=== PATIENT | female | born 1960 | race Caucasian/White ===

== ENCOUNTER 2017-01-14 20:59 | Observation (INO) ==
--- NOTE | 2017-01-14 21:24 | Emergency Department Note ---
Disposition Clinical Impression: Chest pain, History of coronary artery disease, Obesity, History of hypertension, Smoker, History of COPD, Hypokalemia, Anemia Disposition: Admitted As Inpatient Referrals: Bakari Love DO [Primary Care Provider] - Forms: ED Satisfaction Letter General Adult HPI - General Chief complaint: ED Chest Pain Stated complaint: chest pain x 3 days Time Seen by Provider: 01/14/17 21:24 Source: patient, EMS Limitations: no limitations - History of Present Illness HPI Narrative: 56-year-old female with a history of coronary artery disease per her report states that she has been having left-sided chest pain radiating to the left arm for the last 3 days. The patient has no known history of coronary stents but states she has had 2 MIs. She also reports a history of COPD. She does not require oxygen at home. The patient has been coughing but not coughing up any blood. No leg swelling or pain or syncope. No previous history of DVT PE or cancer. The patient describes sharp left-sided chest pain. The patient has had no trauma to the chest. There is no history of localized abdominal pain no previous history of aneurysms. No diarrhea but some emesis has been reported. She is not anticoagulated. No bloody emesis. There is no history of acute back pain no trouble moving the arms or legs independently. No history of confusion neck stiffness rash or fever. No troubles walking talking hearing seeing or speaking. The pain in the chest hurts with coughing and moving. Pain Scale: 10 - Related Data Home Medications Medication Instructions Recorded Confirmed Escitalopram [Lexapro] 20 mg PO DAILY 03/21/15 01/14/17 Loratadine [Claritin] 10 mg PO DAILY 03/21/15 01/14/17 Albuterol Sulfate [Proair Hfa] 2 puff IH Q4H PRN 01/14/17 01/14/17 Aspirin Enteric Coated [Aspirin EC] 325 mg PO DAILY 01/14/17 01/14/17 Atorvastatin Calcium [Lipitor] 80 mg PO HS 01/14/17 01/14/17 Fenofibrate Nanocrystallized 160 mg PO DAILY 01/14/17 01/14/17 [Triglide] Fluticasone Propionate Nasal 50 mcg NS DAILY 01/14/17 01/14/17 [Flonase] Fluticasone/Vilanterol [Breo 1 each IH DAILY 01/14/17 01/14/17 Ellipta 100-25 Mcg INH] Gabapentin [Neurontin] 1,200 mg PO TID 01/14/17 01/14/17 Lisinopril/Hydrochlorothiazide 1 each PO BID 01/14/17 01/14/17 [Zestoretic 20-12.5 mg Tablet] Montelukast [Singulair] 10 mg PO HS 01/14/17 01/14/17 [place]-3/Dha/Epa/Fish Oil [Fish Oil 1,000 mg PO DAILY 01/14/17 01/14/17 1,000 mg Softgel] Oxycodone HCl/Acetaminophen 1 each PO TID PRN 01/14/17 01/14/17 [Percocet 5-325 mg Tablet] Simethicone [Gas-X] 80 mg PO TID 01/14/17 01/14/17 Trazodone HCl 200 mg PO HS 01/14/17 01/14/17 diazePAM [Valium] 5 mg PO TID 01/14/17 01/14/17 risperiDONE [Risperdal] 4 mg PO HS 01/14/17 01/14/17 Allergies Allergy/AdvReac Type Severity Reaction Status Date / Time No Known Allergies Allergy Verified 04/01/16 18:15 All systems ED: reviewed and negative except as stated. Past Medical History - Past Medical History Medical history: Reports: hypertension, myocardial infarction, other Psychiatric history: Reports: anxiety, depression ASSEMBLER BONDING history: Reports: no ASSEMBLER BONDING history - Social History Smoking Status: Current every day smoker Smokeless Tobacco Status: No Alcohol use: Reports: none Drug use: Reports: none Physical Exam - General Limitations: no limitations General appearance: alert, in no apparent distress - Head Head exam: atraumatic, normocephalic, normal inspection - Eye Eye exam: Present: normal appearance, PERRL, EOMI - ENT ENT exam: normal exam, normal oropharynx, mucous membranes moist, TM's normal bilaterally, normal external ear exam - Neck Neck exam: Present: normal inspection, full ROM, trachea midline. Absent: tenderness - Chest Chest inspection: Present: symmetric chest wall rise. Absent: tenderness - Respiratory Respiratory exam: Present: normal lung sounds bilaterally. Absent: respiratory distress, wheezes, stridor, accessory muscle use, prolonged expiratory phase - Cardiovascular Cardiovascular exam: Present: regular rate, normal rhythm, normal heart sounds - Abdominal Exam Abdominal exam: Present: soft, Non-Tender, normal bowel sounds. Absent: tenderness, distention, guarding, rebound, rigidity, pulsatile mass - Extremities Exam Extremities exam: Present: normal inspection, full ROM, normal capillary refill. Absent: tenderness, pedal edema, joint swelling, calf tenderness - Expanded Lower Extremity Exam Lower leg exam: Absent: Homans' sign Neurovascular/Tendon exam: Present: normal capillary refill. Absent: motor deficit, sensory deficit, tendon deficit, extremity cold to touch, pallor - Back Exam Back exam: Present: normal inspection, full ROM. Absent: tenderness, CVA tenderness (R), CVA tenderness (L), vertebral tenderness - Neurological Exam Neurological exam: Present: alert, oriented X3, CN II-XII intact. Absent: motor sensory deficit - Psychiatric Psychiatric exam: Present: normal affect, normal mood - Skin Skin exam: Present: warm, dry, intact, normal color. Absent: rash, cyanosis, diaphoresis, erythema, pallor, mottled Course Vital Signs Temperature 98.4 F 01/14/17 21:06 Pulse Rate 74 01/14/17 21:06 Respiratory Rate 20 01/14/17 21:06 Blood Pressure 114/67 01/14/17 21:06 O2 Sat by Pulse Oximetry 95 01/14/17 21:06 Temperature 98.4 F 01/14/17 21:06 Pulse Rate 72 01/14/17 22:29 Respiratory Rate 18 01/14/17 22:29 Blood Pressure 119/71 01/14/17 22:29 O2 Sat by Pulse Oximetry 95 01/14/17 22:29 Oxygen Delivery Oxygen Delivery Room Air Medical Decision Making - [facility] Narrative Medical decision making narrative: The patient has over 50, obese, has a history of hypertension, she is complaining of chest pain and dyspnea on exertion particularly, the patient has not had a stress test for many years, she states she has had an LA in the past. The patient's testing here shows no major abnormalities of an acute nature, however based on her risk factors and heart score of 5 or 6, with no recent cardiac testing, I thought it would be appropriate to admit the patient for observation. She was given aspirin in the ED as well as morphine and Zofran. I discussed the case with the hospitalist who has accepted the patient to their care. The patient is currently stable. - Lab Data Lab results reviewed: Yes I reviewed the patient's lab results. Result diagrams: 01/14/17 21:33 01/14/17 21:33 Lab Results 01/14/17 01/14/17 01/14/17 Range/Units 21:33 21:33 21:33 WBC (4.3-11.1) K/mcL RBC (3.82-4.97) M/mcL Hgb (11.5-15.4) g/dL Hct (35.3-44.9) % MCV (83.0-100.0) fL MCH (28.0-33.3) pg MCHC (31.6-35.5) g/dL RDW (11.5-14.5) % Plt Count (140-400) K/mcL MPV (9.4-12.4) fL Immature Gran % (0-4) % Seg Neutrophils % % Lymphocytes % % Monocytes % % Eosinophils % % Basophils % % Neutrophils # (1.6-8.9) K/mcL Lymphocytes # (0.6-4.6) K/mcL Monocytes # (0.0-1.3) K/mcL Eosinophils # (0.0-0.6) K/mcL Basophils # (0.0-0.2) K/mcL Immature Plt Fraction (1.1-6.1) % PT 11.6 (9.4-12.1) Seconds INR 1.1 APTT 28.3 (26.0-36.0) Seconds Sodium (136-145) mEq/L Potassium (3.5-4.5) mEq/L Chloride (98-109) mEq/L Carbon Dioxide (19-29) mEq/L BUN (7-20) mg/dL Creatinine (0.57-1.11) mg/dL Est GFR ( Amer) (> 60) Est GFR (Non-Af Amer) (> 60) BUN/Creatinine Ratio (6-26) Glucose (70-99) mg/dL Calculated Osmolality (280-300) Lactic Acid 0.8 (0.5-2.2) mmol/L Calcium (8.6-10.8) mg/dL Total Bilirubin 0.5 (0.2-1.2) mg/dL Direct Bilirubin 0.2 (0.0-0.5) mg/dL Indirect Bilirubin 0.3 (0.0-1.2) mg/dL AST 31 (5-34) Units/L ALT 15 (0-55) Units/L Alkaline Phosphatase 50 (38-126) Units/L Troponin I (0-0.03) ng/mL C-Reactive Protein 6 H (Less than 5) mg/L Serum Total Protein 7.2 (6.0-8.3) g/dL Albumin 3.5 (3.5-5.0) g/dL Globulin 3.7 H (2.4-3.5) g/dL Albumin/Globulin Ratio 0.9 L (1.1-2.2) Lipase 44 (8-78) Units/L 01/14/17 01/14/17 01/14/17 Range/Units 21:33 21:33 21:33 WBC 8.1 (4.3-11.1) K/mcL RBC 3.60 L (3.82-4.97) M/mcL Hgb 11.4 L (11.5-15.4) g/dL Hct 32.7 L (35.3-44.9) % MCV 90.8 (83.0-100.0) fL MCH 31.7 (28.0-33.3) pg MCHC 34.9 (31.6-35.5) g/dL RDW 12.6 (11.5-14.5) % Plt Count 292 (140-400) K/mcL MPV 9.1 L (9.4-12.4) fL Immature Gran % 0.5 (0-4) % Seg Neutrophils % 63.9 % Lymphocytes % 24.2 % Monocytes % 8.3 % Eosinophils % 2.6 % Basophils % 0.5 % Neutrophils # 5.2 (1.6-8.9) K/mcL Lymphocytes # 2.0 (0.6-4.6) K/mcL Monocytes # 0.7 (0.0-1.3) K/mcL Eosinophils # 0.2 (0.0-0.6) K/mcL Basophils # 0.0 (0.0-0.2) K/mcL Immature Plt Fraction 4.4 (1.1-6.1) % PT (9.4-12.1) Seconds INR APTT (26.0-36.0) Seconds Sodium 124 L (136-145) mEq/L Potassium 3.4 L (3.5-4.5) mEq/L Chloride 89 L (98-109) mEq/L Carbon Dioxide 24 (19-29) mEq/L BUN 8 (7-20) mg/dL Creatinine 0.78 (0.57-1.11) mg/dL Est GFR ( Amer) > 60 (> 60) Est GFR (Non-Af Amer) > 60 (> 60) BUN/Creatinine Ratio 10 (6-26) Glucose 91 (70-99) mg/dL Calculated Osmolality 256 L (280-300) Lactic Acid (0.5-2.2) mmol/L Calcium 9.3 (8.6-10.8) mg/dL Total Bilirubin (0.2-1.2) mg/dL Direct Bilirubin (0.0-0.5) mg/dL Indirect Bilirubin (0.0-1.2) mg/dL AST (5-34) Units/L ALT (0-55) Units/L Alkaline Phosphatase (38-126) Units/L Troponin I 0.01 (0-0.03) ng/mL C-Reactive Protein (Less than 5) mg/L Serum Total Protein (6.0-8.3) g/dL Albumin (3.5-5.0) g/dL Globulin (2.4-3.5) g/dL Albumin/Globulin Ratio (1.1-2.2) Lipase (8-78) Units/L - Radiology Data Radiology results reviewed: Yes I reviewed the patient's radiology results.
[2017-01-14 21:40] LABS: Basophils % 0.5 %; Eosinophils # 0.2 K/mcL (0.0-0.6); Eosinophils % 2.6 %; Hematocrit 32.7 % (35.3-44.9); Hemoglobin 11.4 g/dL (11.5-15.4); Immature Granulocytes % 0.5 % (0-4); Immature Platelets 4.4 % (1.1-6.1); Lymphocytes % 24.2 %; Mean Corpuscular HGB Conc 34.9 g/dL (31.6-35.5); Mean Corpuscular Hemoglobin 31.7 pg (28.0-33.3); Mean Corpuscular Volume 90.8 fL (83.0-100.0); Mean Platelet Volume 9.1 fL (9.4-12.4); Monocytes # 0.7 K/mcL (0.0-1.3); Monocytes % 8.3 %; Neutrophils # 5.2 K/mcL (1.6-8.9); Platelet Count 292 K/mcL (140-400); Red Cell Distribution Width 12.6 % (11.5-14.5); Segmented Neutrophils % 63.9 %
[2017-01-14 21:44] LABS: INR 1.1; Prothrombin Time 11.6 Seconds (9.4-12.1)
[2017-01-14 21:47] LABS: Activated Partial Thrombo Time 28.3 Seconds (26.0-36.0)
[2017-01-14 21:56] LABS: BUN/Creatinine Ratio 10 (6-26); Blood Urea Nitrogen 8 mg/dL (7-20); Calcium 9.3 mg/dL (8.6-10.8); Carbon Dioxide 24 mEq/L (19-29); Chloride 89 mEq/L (98-109); Glucose 91 mg/dL (70-99); Osmolality,Calculated 256 (280-300); Potassium 3.4 mEq/L (3.5-4.5); Sodium 124 mEq/L (136-145); eGFR For African Americans > 60 (> 60); eGFR For Non-African Americans > 60 (> 60)
[2017-01-14 21:57] LABS: Albumin 3.5 g/dL (3.5-5.0); Albumin/Globulin Ratio 0.9 (1.1-2.2); Bilirubin,Direct 0.2 mg/dL (0.0-0.5); Bilirubin,Indirect 0.3 mg/dL (0.0-1.2); Bilirubin,Total 0.5 mg/dL (0.2-1.2); Globulin 3.7 g/dL (2.4-3.5); Total Protein 7.2 g/dL (6.0-8.3)
[2017-01-14] MEDS ORDERED: *HR* Morphine 2 MG/ML SYRINGE IVP ONE (22:01)
[2017-01-14] MEDS ORDERED: Ondansetron 4 MG/2 ML VIAL IVP ONE (22:01)
[2017-01-14] MEDS ORDERED: Aspirin 325 MG TABLET PO ONE (22:01)
[2017-01-15] MEDS ORDERED: Acetaminophen 325 MG TABLET PO PRN (01:51)
[2017-01-15] MEDS ORDERED: Naloxone 0.4 MG/ML INJ IVP PRN (01:51)
[2017-01-15] MEDS ORDERED: Nitroglycerin 0.4 MG TAB.SUBL SL PRN (01:51)
[2017-01-15] MEDS ORDERED: *HR* OxyCODONE Immed Rel 5 MG TABLET PO PRN (01:51)
[2017-01-15] MEDS ORDERED: *HR* Morphine 2 MG/ML SYRINGE IVP PRN (01:51)
[2017-01-15] MEDS ORDERED: Ipratropium/Albuterol Neb 3 ML IH PRN (01:51)
[2017-01-15] MEDS ORDERED: Ondansetron 4 MG/2 ML VIAL IVP PRN (01:51)
--- NOTE | 2017-01-15 01:58 | Internal Med History&Physical ---
Date of Encounter: 01/15/17 Time of Encounter: 01:56 Assessment and Plan (1) Chest pain Current visit: Yes Status: Acute With history of CAD Continue aspirin, statin Telemetry, troponins, echocardiogram, stress test in the morning Check lipid panel Omeprazole for GI prophylaxis and Lovenox for DVT prophylaxis he will be admitted for observation. Full code. Time spent on this admission 40 minutes. Qualifiers: Chest pain type: precordial pain Qualified Code(s): R07.2 - Precordial pain (2) Hyponatremia Current visit: Yes Status: Acute Possibly secondary to chronic alcoholism/hypovolemic and the use of hydrochlorothiazide Hold hydrochlorothiazide Send urine sodium and urine osmolality, monitor sodium, will maintain hydration for now as the patient appears dehydrated Order TSH (3) Alcohol abuse Current visit: Yes Status: Acute Continue diazepam (4) History of COPD Current visit: Yes Status: Acute (5) History of coronary artery disease Current visit: Yes Status: Acute (6) History of hypertension Current visit: Yes Status: Acute (7) Hypokalemia Current visit: Yes Status: Acute Replete as needed (8) Obesity Current visit: Yes Status: Acute Qualifiers: Obesity type: due to excess calories Obesity severity: morbid Qualified Code(s): E66.01 - Morbid (severe) obesity due to excess calories (9) Smoker Current visit: Yes Status: Acute Smoking cessation counseling given for 5 minutes. Nicotine patch Internal Medicine - H&P: HPI Chief complaint: Chest pain Admitted From: Emergency Dept History of present illness: Ms. Blanc is a 56 year old female with a past medical history of CAD with 2 MIs in the past, COPD not oxygen dependent, hypertension, tobacco use, hyperlipidemia, history of alcohol and polysubstance abuse, came to the emergency room complaining of 3 days of chest pain, with a dry cough, feels short of breath and has been complaining of difficulty breathing when the chest pressure occurs. Midsternal, pressure-like with no radiation. Today her troponin x-ray and EKG were unremarkable. Sodium is 124 potassium 3.4 and chloride 89. The patient says that she does not eat much drinks lots of water and drinks beer every day. Also she is on hydrochlorothiazide. Appears slightly dehydrated and complains of headaches Past Med Surg Social Fam HX - Past Medical History Medical history: COPD (Not oxygen dependent), coronary artery disease, GERD, hypertension, myocardial infarction, other (Tobacco use, polysubstance abuse, seizure in 1997, hyperlipidemia, alcohol abuse, cervical radiculopathy, neuropathy, hypokalemia) Psychiatric history: anxiety, depression - Past Surgical History Surgical History: other (Cardiac catheterization, I and D, left arm surgery, carpal tunnel surgery, right knee arthroscopy, meniscectomy) - Social History Smoking Status: Current every day smoker Packs per day: Hospital pack a day Smokeless Tobacco Status: No Alcohol use: recent (Says she drinks 1 beer daily) Drug use: other (Used to abuse speed) - Family History Mother Hx Family Cardiac Disorders: Yes (ME) Hx Family Cancer: Yes (UTERINE) - Additional Family History Additional family history: Father and mother with CVA and diabetes Internal Medicine - H&P: Meds Escitalopram [Lexapro] 20 mg PO DAILY 03/21/15 [History] Loratadine [Claritin] 10 mg PO DAILY 03/21/15 [History] Albuterol Sulfate [Proair Hfa] 2 puff IH Q4H PRN 01/14/17 [History] Aspirin Enteric Coated [Aspirin EC] 325 mg PO DAILY 01/14/17 [History] Atorvastatin Calcium [Lipitor] 80 mg PO HS 01/14/17 [History] Fenofibrate Nanocrystallized [Triglide] 160 mg PO DAILY 01/14/17 [History] Fluticasone Propionate Nasal [Flonase] 50 mcg NS DAILY 01/14/17 [History] Fluticasone/Vilanterol [Breo Ellipta 100-25 Mcg INH] 1 each IH DAILY 01/14/17 [ History] Gabapentin [Neurontin] 1,200 mg PO TID 01/14/17 [History] Lisinopril/Hydrochlorothiazide [Zestoretic 20-12.5 mg Tablet] 1 each PO BID 04/24 [History] Montelukast [Singulair] 10 mg PO HS 01/14/17 [History] [place]-3/Dha/Epa/Fish Oil [Fish Oil 1,000 mg Softgel] 1,000 mg PO DAILY 01/14/17 [History] Oxycodone HCl/Acetaminophen [Percocet 5-325 mg Tablet] 1 each PO TID PRN [History] Simethicone [Gas-X] 80 mg PO TID 01/14/17 [History] Trazodone HCl 200 mg PO HS 01/14/17 [History] diazePAM [Valium] 5 mg PO TID 01/14/17 [History] risperiDONE [Risperdal] 4 mg PO HS 01/14/17 [History] Allergies No Known Allergies Allergy (Verified 04/01/16 18:15) All Systems PM: A 10-system review of systems was performed and is negative for pertinent findings except as documented above in the HPI. Review of systems: Complains of chest pressure mild, shortness of breath, other systems out of the 10 reviewed were negative - Constitutional Vitals: Temp Pulse Resp BP Pulse Ox 98.1 F 72 16 116/66 94 01/15/17 00:13 01/15/17 00:13 01/15/17 00:13 01/15/17 00:13 01/15/17 00:13 General appearance: Present: A&O X 3 - Head Head exam: Present: atraumatic, normocephalic - Eye Eye exam: Present: PERRL, conjuntiva pink, sclera anicteric Pupils: Present: PERRL - Neck Neck exam general surgery: Present: supple, trachea midline. Absent: lymphadenopathy - Respiratory Respiratory exam: Present: decreased breath sounds, CTAB. Absent: accessory muscle use, rales, rhonchi, wheezes - Cardiovascular Cardiovascular exam: Present: RRR, +S1, +S2. Absent: diastolic murmur, gallop, rubs, systolic murmur - GI/Abdominal GI/Abdominal exam: Present: normal bowel sounds, soft, no peritoneal signs. Absent: distended, tenderness - Extremities Exam Extremities exam: Present: warm, radial pulses palpable and symetrical. Absent : calf tenderness, cyanotic, pedal edema - Neurological Exam Neurological exam: Present: CN II-XII intact, oriented X3, no focal deficits. Absent: pronater drift, facial droop, speech deficit - Skin Skin exam: Present: dry, intact Internal Med - H&P Results - Labs CBC & Chem 7: 01/14/17 21:33 01/14/17 21:33
[2017-01-15] MEDS ORDERED: 0.9 % Sodium Chloride 1,000 ML IVC SCH (02:00)
[2017-01-15 03:25] LABS: Chol/HDL Ratio 5.4 (0-4.9)
[2017-01-15 04:31] LABS: Sodium, Urine < 20.0 mEq/L
[2017-01-15 04:34] LABS: Osmolality,Urine 162 mOsm/kg (300-1090)
[2017-01-15] MEDS ORDERED: *HR* Enoxaparin 40 MG/0.4 ML SYRINGE SQ SCH (06:00)
[2017-01-15] MEDS ORDERED: Regadenoson 0.4 MG/5 ML SYRINGE IVP ONE (08:26)
[2017-01-15] MEDS ORDERED: Fenofibrate 54 MG TABLET PO SCH (09:00)
[2017-01-15] MEDS ORDERED: Lisinopril 20 MG TABLET PO SCH (09:00)
[2017-01-15] MEDS ORDERED: Nicotine 21 MG PATCH.TD24 TD SCH (09:00)
[2017-01-15] MEDS ORDERED: Thiamine (B-1) 100 MG TABLET PO SCH (09:00)
[2017-01-15] MEDS ORDERED: Aspirin Enteric Coated 325 MG Tablet PO SCH (09:00)
[2017-01-15] MEDS ORDERED: Vitamin B Complex/Vit C/Vit E 1 EACH TABLET PO SCH (09:00)
[2017-01-15] MEDS ORDERED: Folic Acid 1 MG TABLET PO SCH (09:00)
[2017-01-15] MEDS: diazePAM 5 MG TABLET PO SCH ×2 (12:56→15:22)
[2017-01-15] MEDS: Gabapentin 400 MG CAPSULE PO SCH ×2 (12:56→15:22)
--- NOTE | 2017-01-15 13:35 | Nuclear Medicine Stress Report ---
Regadenoson Nuclear Stress Name: Kaylynn Blanc Date of Study: 01/15/2017 Date: 1960 Ht: 68.0 in Medical Record#: [id number] Age: 56 Wt: 248.0 lb Gender: Female Order #: [id number] Location: [facility] Room: [facility] Supervising Provider: Alice Hart CNP Reading Physician: Ar Elkins MD, [facility] Ordering Physician: Calli Arauz CNP Primary Care Physician: Bakari Love DO Stress Technologist: Verena Colmenares, [employer], CCT, CPFT Manager Industrial: Carlos Martinez Indications: Chest Pain Impression: No significant ECG changes with regadenoson. The left ventricle is mildly dilated. Gated LVEF = 59%. Perfusion imaging was negative for ischemia or infarct. History: Hypertension Diabetes Hypercholesteremia History of Smoking Stress Test Summary: Stress Test Type: Pharmacologic Regadenoson 0.4mg/5ml given IV Baseline Information: Initial Heart Rate: 65 Blood Pressure: 122/60 Stress Information: Test Terminated Due to (primary): As per protocol Maximum Blood Pressure: 124/64 Maximum Heart Rate: 74 Percent Maximum Heart Rate Achieved: 45 Double Product: 9176 Symptoms: Shortness of breath Nuclear Summary: SPECT myocardial perfusion imaging using Tc99m Sestamibi given intravenously was performed at rest and following cardiac stress testing. The resting images were obtained following initial dose of 11.7 mCi. Following stress an additional dose of 35.3 mCi was given at peak exercise or 30 seconds post regadenoson infusion. Findings: Stress Note * Resting ECG demonstrated normal sinus rhythm. * No baseline arrhythmias were noted. * Patient had no chest pain during stress. * No arrhythmias were noted during stress. * No significant ECG changes with regadenoson. Hemodynamic responses * Normal hemodynamic responses to pharmacologic stress. Study Quality * Study quality is average. Gated EF % * Gated LVEF = 59%. Left Ventricle * The left ventricle is mildly dilated. * Normal Segmental Perfusion in rest. * Normal segmental perfusion in stress. TID * No evidence of transient ischemic dilatation. Updated by Ar Elkins MD, [facility] on 01/15/2017 1:28:43 PM electronically signed on 01/15/2017 1:29:03 PM with status of Final
[2017-01-15 15:31] VITALS: BP 118/64
--- NOTE | 2017-01-15 16:28 | Discharge Summary ---
Date of Encounter: 01/15/17 Time of Encounter: 13:30 - Discharge Diagnosis (1) Chest pain Priority: Primary Status: Acute Comments: Patient reports left upper chest pain for 3 days then increase with cough. She said there is no radiation and no shortness of breath. She does report vomiting at one point. The pain is reproducible with palpation to left upper chest. Patient denies chest pain currently while seated. Troponins were negative 3. Echocardiogram shows normal systolic function with an LVEF of 60%, mild diastolic dysfunction, normal RV size and function. Trileaflet aortic valve with moderately sclerotic aortic valve leaflets. Mild to moderate aortic regurgitation, moderately thickened calcified mitral valve leaflets, mild mitral regurgitation, and borderline mild pulmonary hypertension. Stress test shows left ventricle is mildly dilated. Gated LVEF 59%. Perfusion imaging negative for ischemia or infarct. She had no ECG changes or chest pain during the stress test. Patient is pain-free. Qualifiers: Chest pain type: chest pain on breathing Qualified Code(s): R07.1 - Chest pain on breathing (2) Obesity Priority: Secondary Status: Chronic Comments: Chronic. Lifestyle changes. Qualifiers: Obesity type: due to excess calories Obesity severity: morbid Qualified Code(s): E66.01 - Morbid (severe) obesity due to excess calories (3) History of hypertension Priority: Secondary Status: Chronic Comments: Pressure has been well controlled today in inpatient setting. Continue home medications. (4) Smoker Priority: Secondary Status: Chronic Comments: Patient is not interested in smoking cessation at this time. She says she smokes approximately one half pack per day. (5) History of COPD Priority: Secondary Status: Chronic Comments: No acute exacerbation. This, too, is well controlled. Her lungs are clear and diminished. No wheezing, rhonchi, Rales. Continue home medications. Patient is not interested in smoking cessation. (6) Hyponatremia Priority: Secondary Status: Acute Comments: Patient arrives with hyponatremia, sodium was 124. It is 132 now. I will encourage patient to increase her sodium intake mildly over the next few days to increase her sodium. (7) Alcohol abuse Priority: Secondary Status: Chronic Comments: Patient states that she drinks 6 beers daily. She is not interested in any information on alcohol rehabilitation. - Discharge Medications Prescriptions: Folic Acid 1 mg PO DAILY #30 tablet Thiamine (B-1) [Vitamin B-1] 100 mg PO DAILY #30 tablet Home Medications: Escitalopram [Lexapro] 20 mg PO DAILY 03/21/15 [History] Loratadine [Claritin] 10 mg PO DAILY 03/21/15 [History] Albuterol Sulfate [Proair Hfa] 2 puff IH Q4H PRN 01/14/17 [History] Aspirin Enteric Coated [Aspirin EC] 325 mg PO DAILY 01/14/17 [History] Atorvastatin Calcium [Lipitor] 80 mg PO HS 01/14/17 [History] Fenofibrate Nanocrystallized [Triglide] 160 mg PO DAILY 01/14/17 [History] Fluticasone Propionate Nasal [Flonase] 50 mcg NS DAILY 01/14/17 [History] Fluticasone/Vilanterol [Breo Ellipta 100-25 Mcg INH] 1 each IH DAILY 01/14/17 [ History] Gabapentin [Neurontin] 1,200 mg PO TID 01/14/17 [History] Lisinopril/Hydrochlorothiazide [Zestoretic 20-12.5 mg Tablet] 1 each PO BID 04/24 [History] Montelukast [Singulair] 10 mg PO HS 01/14/17 [History] [place]-3/Dha/Epa/Fish Oil [Fish Oil 1,000 mg Softgel] 1,000 mg PO DAILY 01/14/17 [History] Oxycodone HCl/Acetaminophen [Percocet 5-325 mg Tablet] 1 each PO TID PRN [History] Simethicone [Gas-X] 80 mg PO TID 01/14/17 [History] Trazodone HCl 200 mg PO HS 01/14/17 [History] diazePAM [Valium] 5 mg PO TID 01/14/17 [History] risperiDONE [Risperdal] 4 mg PO HS 01/14/17 [History] Folic Acid 1 mg PO DAILY #30 tablet 01/15/17 [Rx] Thiamine (B-1) [Vitamin B-1] 100 mg PO DAILY #30 tablet 01/15/17 [Rx] Allergies/Adverse Reactions: Allergies No Known Allergies Allergy (Verified 04/01/16 18:15) Procedures/tests Complete & Pending: Procedures Performed prior 72 hours Category Date Time Status NM aleyda perf SPECT multi [NM] Routine Exams 01/15/17 02:04 Taken EV echocardiogram Routine Y 01/15/17 01:55 Completed SP pharm nuclear stress Routine Y 01/15/17 02:04 Completed Date of admission: 01/14/17 23:38 Primary care physician: Naseem Gonzalez Discharging clinician: Calli Arauz Anticipated date of discharge: 01/15/17 - Patient Status Disposition: Home, Self-Care Condition: Good Functional capacity at discharge: independent ambulation Overall status at discharge: patient is back to baseline - Discharge Instructions Follow Up With: Bakari Love, [Primary Care Provider] - Additional Instructions: Resume home medications. Ad folate and B1 to your daily medications. Return to the emergency department as needed for any other problems or concerns. Please follow-up with your primary care provider for hospital follow-up. - Diet and Activity Activity: increase activity as tolerated Diet: low fat, low cholesterol, low salt diet Hospital course: Ms. Blanc is a 56 year old female - Time Spent with Patient Total time spent providing and/or coordinating discharge services: - Constitutional Vitals: Temp Pulse Resp BP Pulse Ox 98.1 F 69 20 118/64 94 01/15/17 15:30 01/15/17 15:30 01/15/17 15:30 01/15/17 15:30 01/15/17 15:30 General appearance: Present: A&O X 3, pleasant, no acute distress, answers questions appropriately - Head Head exam: Present: normal inspection - Eye Eye exam: Present: normal appearance, conjuntiva pink - ENT ENT exam: Present: mucous membranes moist, normal exam, normal external ear exam - Neck Neck exam general surgery: Present: normal inspection. Absent: lymphadenopathy , tenderness - Respiratory Respiratory exam: Present: CTAB. Absent: rales, respiratory distress, rhonchi, wheezes - Cardiovascular Cardiovascular exam: Present: RRR, +S1, +S2. Absent: clicks, diastolic murmur, gallop, systolic murmur - GI/Abdominal GI/Abdominal exam: Present: normal bowel sounds, soft. Absent: hepatomegaly, splenomegaly, tenderness - Extremities Exam Extremities exam: Present: normal capillary refill, pedal edema, warm, radial pulses palpable and symetrical. Absent: tenderness - Neurological Exam Neurological exam: Present: alert, oriented X3, no focal deficits. Absent: facial droop, speech deficit
[2017-01-15] MEDS ORDERED: risperiDONE 1 MG TABLET PO SCH (21:00)
[2017-01-15] MEDS ORDERED: traZODone 50 MG TABLET PO SCH (21:00)
--- NOTE | 2017-01-17 08:05 | Electrocardiograph Report ---
[place] [id number] Test Date: 2017-01-14 Pat Name: Kaylynn Blanc Department: 104 Room: 3B49 Gender: F Manager Managed Care: TIFFANIE : 1960 Requested By: Dion Gallego Order Number: [id number] Reading MD: George Palomo MD Measurements Intervals [place] Rate: 76 P: 59 NV: 219 QRS: 24 QRSD: 114 T: 48 QT: 389 QTc: 420 Interpretive Statements SINUS RHYTHM WITH FIRST DEGREE AV BLOCK Electronically Signed On 01-17-2017 8:04:00 EDT by George Palomo MD
== END 2017-01-15 17:20 | disposition home or self-care (01) ==
LOC: EMEROO 20:59 → 3BNU 20:59
PROVIDERS: ADMIT Registered Nurse; ATTEND Registered Nurse

== ENCOUNTER 2018-06-12 16:26 | Inpatient (IN) ==
--- NOTE | 2018-06-12 16:54 | Emergency Department Note ---
Disposition Clinical Impression: Chest pain, Neck pain on left side, Encounter for post surgical wound check, Neck swelling Disposition: Admitted As Inpatient Condition: Good Chest Pain HPI - General Chief Complaint: ED Chest Pain Stated Complaint: cp Time Seen by Provider: 06/12/18 16:42 Source: patient, EMS Mode of arrival: EMS Limitations: no limitations, altered mental status Vital Signs Reviewed: Yes Nursing Notes Reviewed: Yes - History of Present Illness HPI Narrative: Patient is a 57-year-old female presenting to the ED for a 3 day history of chest and neck pain. Patient states that she is postop day 5 for an anterior cervical fusion performed by Dr. Youssef. Patient states that 3 days ago she began having chest pain and pain in the left side of her neck which is associated with swelling and erythema of the anterior throat. Patient also admits difficulty breathing and dysphagia. Patient states that her chest pain is "the worst pain of my life" 10 out of 10 on the pain scale and tight and stabbing in nature. Onset (ago): day(s) Duration: constant Pain Location: left chest Severity: severe Severity scale (1-10): 10 Quality: tightness, sharp Pain Radiation: neck Improves with: nothing Worsens with: nothing Context: history of DVT/PE Treatments prior to arrival chest pain: aspirin - Related Data Home Medications Medication Instructions Recorded Confirmed RX: Albuterol Sulfate [Proair Hfa] 2 puff IH Q4H PRN 01/14/17 01/14/17 RX: Atorvastatin Calcium [Lipitor] 80 mg PO DAILY 01/14/17 06/07/18 RX: Fenofibrate Nanocrystallized 160 mg PO DAILY 01/14/17 06/07/18 [Triglide] RX: Fluticasone/Vilanterol [Breo 1 each IH DAILY 01/14/17 06/07/18 Ellipta 100-25 Mcg INH] RX: [place]-3/Dha/Epa/Fish Oil [Fish 1,000 mg PO DAILY 01/14/17 06/07/18 Oil 1,000 mg Softgel] RX: Simethicone [Gas-X] 80 mg PO BID 01/14/17 06/07/18 RX: Lisinopril [Zestril] 40 mg PO DAILY 06/07/18 06/07/18 RX: diazePAM [Valium] 5 mg PO TID PRN 06/08/18 06/08/18 Previous Rx's Medication Instructions Recorded RX: Albuterol Sulfate [Albuterol 2 puff IH QID #1 inhaler 05/21/17 Inhaler] RX: OxyCODONE Immed Rel 5 mg PO Q6HR PRN 7 Days #30 tablet 06/08/18 [Roxicodone 5 MG] Allergies Allergy/AdvReac Type Severity Reaction Status Date / Time acetaminophen AdvReac Headache Verified 06/07/18 09:08 [From Darvocet-N] celecoxib [From Celebrex] AdvReac Depression Verified 06/08/18 06:28 hydrocodone [From Vicodin] AdvReac Diarrhea Verified 06/08/18 06:28 ibuprofen AdvReac Gastrointestinal Verified 06/08/18 06:28 Upset naproxen [From Naprosyn] AdvReac Headache Verified 06/06/18 10:26 propoxyphene AdvReac Headache Verified 06/07/18 09:08 [From Darvocet-N] tramadol AdvReac Hives Verified 06/08/18 10:10 All systems ED: reviewed and negative except as stated. 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 There is swelling and erythema with noted pearly drainage. Patient states odynophagia/dysphasia as well as difficulty breathing. There is tenderness to palpation but no bruit noted.) - Chest Chest inspection: Present: normal inspection, symmetric chest wall rise - Respiratory Respiratory exam: Present: wheezes. Absent: respiratory distress, accessory muscle use, prolonged expiratory phase - Cardiovascular Cardiovascular exam: Present: regular rate, normal rhythm, normal heart sounds, +S1, +S2. Absent: JVD, +S3, +S4 Course Course Narrative: Patient history, review systems, and physical exam is concerning for cardiovascular pathology, as well as infectious etiology. CBC, BMP, LFT, chest x-ray, EKG, old EKG, troponin, BNP, lipase, PT/INR, PTT, CT scan of the head and neck with contrast to be performed to assess for cardiovascular, pulmonary and infectious pathology. DuoNeb nebs for relief of patient's symptoms. Vital Signs Temperature 98.0 F 06/12/18 16:31 Pulse Rate 76 06/12/18 16:31 Respiratory Rate 18 06/12/18 16:31 Blood Pressure 105/66 06/12/18 16:31 O2 Sat by Pulse Oximetry 93 06/12/18 16:31 Temperature 98.0 F 06/12/18 16:31 Pulse Rate 80 06/12/18 20:08 Respiratory Rate 18 06/12/18 20:08 Blood Pressure 124/69 06/12/18 20:08 O2 Sat by Pulse Oximetry 94 06/12/18 20:08 Oxygen Delivery Oxygen Delivery Room Air Chest Pain - MDM Narrative Medical decision making narrative: CT scan of the neck showed narrowing of the laryngeal airway. Patient also states continuing pain in her neck and chest. Patient will be admitted to the hospital for pain management as well as airway monitoring. Discussed plan for admission with patient and patient is in agreement with this plan. Hospitalist accepts admission. - Lab Data Lab results reviewed: Yes I reviewed the patient's lab results. Result diagrams: 06/12/18 16:45 06/12/18 16:45 Lab Results 06/12/18 06/12/18 06/12/18 Range/Units 16:45 16:45 16:45 WBC (4.3-11.1) K/mcL RBC (3.82-4.97) M/mcL Hgb (11.5-15.4) g/dL Hct (35.3-44.9) % MCV (83.0-100.0) fL MCH (28.0-33.3) pg MCHC (31.6-35.5) g/dL RDW (11.5-14.5) % Plt Count (140-400) K/mcL MPV (9.4-12.4) fL Immature Gran % (0-4) % Seg Neutrophils % % Lymphocytes % % Monocytes % % Eosinophils % % Basophils % % Neutrophils # (1.6-8.9) K/mcL Lymphocytes # (0.6-4.6) K/mcL Monocytes # (0.0-1.3) K/mcL Eosinophils # (0.0-0.6) K/mcL Basophils # (0.0-0.2) K/mcL PT 11.6 (9.4-12.1) Seconds INR 1.0 APTT 29.5 (26.0-36.0) Seconds D-Dimer 1015 H (0-500) ng/mLFEU Sodium (136-145) mEq/L Potassium (3.5-5.1) mEq/L Chloride (98-107) mEq/L Carbon Dioxide (23-29) mEq/L BUN (6-20) mg/dL Creatinine (0.60-1.20) mg/dL Est GFR ( Amer) (> 60) Est GFR (Non-Af Amer) (> 60) BUN/Creatinine Ratio (6-26) Glucose (70-105) mg/dL Calculated Osmolality (280-300) Calcium (8.6-10.3) mg/dL Total Bilirubin 0.3 (0.3-1.0) mg/dL Direct Bilirubin 0.0 (0.0-0.2) mg/dL Indirect Bilirubin 0.3 (0.0-1.2) mg/dL AST 14 (13-39) Units/L ALT 7 (7-52) Units/L Alkaline Phosphatase 32 L (34-104) Units/L Troponin I (< 0.04) ng/mL B-Natriuretic Peptide 25 (Less than 100) pg/mL Serum Total Protein 6.9 (6.4-8.9) g/dL Albumin 3.7 (3.5-5.7) g/dL Globulin 3.2 (2.4-3.5) g/dL Albumin/Globulin Ratio 1.2 (1.1-2.2) Lipase 7 L (11-82) Units/L 06/12/18 06/12/18 Range/Units 16:45 16:45 WBC 10.9 (4.3-11.1) K/mcL RBC 3.71 L (3.82-4.97) M/mcL Hgb 11.7 D (11.5-15.4) g/dL Hct 35.4 (35.3-44.9) % MCV 95.4 (83.0-100.0) fL MCH 31.5 (28.0-33.3) pg MCHC 33.1 (31.6-35.5) g/dL RDW 13.6 (11.5-14.5) % Plt Count 327 (140-400) K/mcL MPV 10.5 (9.4-12.4) fL Immature Gran % 1.1 (0-4) % Seg Neutrophils % 66.7 % Lymphocytes % 20.3 % Monocytes % 8.5 % Eosinophils % 2.9 % Basophils % 0.5 % Neutrophils # 7.3 (1.6-8.9) K/mcL Lymphocytes # 2.2 (0.6-4.6) K/mcL Monocytes # 0.9 (0.0-1.3) K/mcL Eosinophils # 0.3 (0.0-0.6) K/mcL Basophils # 0.1 (0.0-0.2) K/mcL PT (9.4-12.1) Seconds INR APTT (26.0-36.0) Seconds D-Dimer (0-500) ng/mLFEU Sodium 129 L (136-145) mEq/L Potassium 3.8 (3.5-5.1) mEq/L Chloride 96 L (98-107) mEq/L Carbon Dioxide 25 (23-29) mEq/L BUN 8 (6-20) mg/dL Creatinine 0.59 L (0.60-1.20) mg/dL Est GFR ( Amer) > 60 (> 60) Est GFR (Non-Af Amer) > 60 (> 60) BUN/Creatinine Ratio 14 (6-26) Glucose 98 (70-105) mg/dL Calculated Osmolality 266 L (280-300) Calcium 9.9 (8.6-10.3) mg/dL Total Bilirubin (0.3-1.0) mg/dL Direct Bilirubin (0.0-0.2) mg/dL Indirect Bilirubin (0.0-1.2) mg/dL AST (13-39) Units/L ALT (7-52) Units/L Alkaline Phosphatase (34-104) Units/L Troponin I < 0.03 (< 0.04) ng/mL B-Natriuretic Peptide (Less than 100) pg/mL Serum Total Protein (6.4-8.9) g/dL Albumin (3.5-5.7) g/dL Globulin (2.4-3.5) g/dL Albumin/Globulin Ratio (1.1-2.2) Lipase (11-82) Units/L - Radiology Data Radiology results reviewed: Yes I reviewed the patient's radiology results. Chest X-Ray 06/12/18 16:46 IMPRESSION: No acute cardiopulmonary disease. D/ / Taran Talbert MD / Taran Talbert MD Interpreting Provider: Taran Talbert MD Chest CTA 06/12/18 16:55 IMPRESSION: 1. No evidence of pulmonary embolic disease. 2. No acute pulmonary findings. 3. Ectasia of the ascending aorta at 4.0 cm maximally. Atherosclerotic calcification in the aorta and coronary circulation. Reflux opacification of the IVC and hepatic veins suggesting elevated right heart pressures. D/ / 06/12/2018 18:44:31 Taran Talbert MD / shai Interpreting Provider: Taran Talbert MD Neck CTA 06/12/18 17:05 IMPRESSION: Status post recent anterior cervical fusion with placement of the intervertebral disc spacer. Evaluation of the structure immediately adjacent to the surgical hardware appears limited due to streak artifact. Nonspecific sclerosis involving the C4 and C5 vertebral body. Unorganized fluid collection within the left anterolateral aspect of the neck, with a few foci of gas. Inflammation and edema is seen to extend into the left oropharynx, left hypopharynx, and left larynx. There is slight rightward deviation of the aerodigestive tract. Small amount of retropharyngeal edema and fluid. While these findings could be postsurgical given recent history of surgery, superimposed infection is not excluded by this examination. Mild narrowing of the laryngeal airway as a result of this process. Clinical correlation is recommended. Approximately 70% stenosis involving the proximal left internal carotid artery, just distal to the left carotid bifurcation. Evaluation of subtle intimal injury is limited due to poor opacification and pre-existing atherosclerotic disease. No evidence of pseudoaneurysm, or active arterial extravasation. Right vertebral artery is not well seen. There is intermittent opacification. This may represent atherosclerotic disease involving the congenitally small right vertebral artery. This is not further evaluated. No evidence of high-grade stenosis or focal occlusion involving the left vertebral artery. The right carotid artery appears unremarkable. The intracranial internal carotid arteries are not well evaluated due to extensive vessel wall calcium. RECOMMENDATIONS: Recommend short interval follow-up examination to document resolution of above described findings. D/ / 06/12/2018 18:58:48 Valente Bravo MD / Elizabeth Rocha Interpreting Provider: Valente Bravo MD - EKG Data EKG attestation: Yes I reviewed and interpreted this EKG. EKG results narrative: Patient EKG shows a sinus rhythm with a normal rate and access. Heart rate is 70 bpm, [place] interval is 176 ms, QRS duration of 104 ms, QT/QTc interval of 389/444 ms. There are no significant ST elevations or depressions, pathologic Q waves, abnormal T-wave inversions, or any other signs of acute ischemic change. At this time there is no prior EKG available for comparison.
[2018-06-12] MEDS ORDERED: Isovue-370 500 ML INFUS..BTL IV ONE (16:55)
[2018-06-12] MEDS ORDERED: Ipratropium/Albuterol Neb 3 ML IH ONE (17:05)
[2018-06-12 17:07] LABS: Basophils # 0.1 K/mcL (0.0-0.2); Basophils % 0.5 %; Eosinophils # 0.3 K/mcL (0.0-0.6); Eosinophils % 2.9 %; Hematocrit 35.4 % (35.3-44.9); Immature Granulocytes % 1.1 % (0-4); Lymphocytes # 2.2 K/mcL (0.6-4.6); Lymphocytes % 20.3 %; Mean Corpuscular HGB Conc 33.1 g/dL (31.6-35.5); Mean Corpuscular Hemoglobin 31.5 pg (28.0-33.3); Mean Corpuscular Volume 95.4 fL (83.0-100.0); Mean Platelet Volume 10.5 fL (9.4-12.4); Monocytes # 0.9 K/mcL (0.0-1.3); Monocytes % 8.5 %; Neutrophils # 7.3 K/mcL (1.6-8.9); Platelet Count 327 K/mcL (140-400); Red Blood Count 3.71 M/mcL (3.82-4.97); Red Cell Distribution Width 13.6 % (11.5-14.5); Segmented Neutrophils % 66.7 %
[2018-06-12 17:08] LABS: Hemoglobin 11.7 g/dL (11.5-15.4)
--- NOTE | 2018-06-12 17:15 | Emergency Department Note ---
Disposition Clinical Impression: Chest pain, Neck pain on left side, Encounter for post surgical wound check, Neck swelling Disposition: Admitted As Inpatient Condition: Good General Adult HPI - General Chief complaint: ED Chest Pain Stated complaint: cp Time Seen by Provider: 06/12/18 16:42 Source: patient, EMS Mode of arrival: EMS Limitations: no limitations - History of Present Illness Pain Scale: 10 - Related Data Home Medications Medication Instructions Recorded Confirmed Albuterol Sulfate [Proair Hfa] 2 puff IH Q4H PRN 01/14/17 01/14/17 Atorvastatin Calcium [Lipitor] 80 mg PO DAILY 01/14/17 06/07/18 Fenofibrate Nanocrystallized 160 mg PO DAILY 01/14/17 06/07/18 [Triglide] Fluticasone/Vilanterol [Breo 1 each IH DAILY 01/14/17 06/07/18 Ellipta 100-25 Mcg INH] [place]-3/Dha/Epa/Fish Oil [Fish Oil 1,000 mg PO DAILY 01/14/17 06/07/18 1,000 mg Softgel] Simethicone [Gas-X] 80 mg PO BID 01/14/17 06/07/18 Lisinopril [Zestril] 40 mg PO DAILY 06/07/18 06/07/18 diazePAM [Valium] 5 mg PO TID PRN 06/08/18 06/08/18 Previous Rx's Medication Instructions Recorded Albuterol Sulfate [Albuterol 2 puff IH QID #1 inhaler 05/21/17 Inhaler] OxyCODONE Immed Rel [Roxicodone 5 5 mg PO Q6HR PRN 7 Days #30 tablet 06/08/18 MG] Allergies Allergy/AdvReac Type Severity Reaction Status Date / Time acetaminophen AdvReac Headache Verified 06/07/18 09:08 [From Darvocet-N] celecoxib [From Celebrex] AdvReac Depression Verified 06/08/18 06:28 hydrocodone [From Vicodin] AdvReac Diarrhea Verified 06/08/18 06:28 ibuprofen AdvReac Gastrointestinal Verified 06/08/18 06:28 Upset naproxen [From Naprosyn] AdvReac Headache Verified 06/06/18 10:26 propoxyphene AdvReac Headache Verified 06/07/18 09:08 [From Darvocet-N] tramadol AdvReac Hives Verified 06/08/18 10:10 Past Medical History - Past Medical History Medical history: Reports: asthma, COPD, hyperlipidemia, hypertension, myocardial infarction, osteoporosis Surgical history: Reports: other Psychiatric history: Reports: anxiety, depression 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 - Social History Smoking Status: Current every day smoker Smokeless Tobacco Status: No Alcohol use: Reports: occasionally, heavy, recent Drug use: Reports: none Physical Exam - General Limitations: no limitations General appearance: alert, in no apparent distress Course Vital Signs Temperature 98.0 F 06/12/18 16:31 Pulse Rate 76 06/12/18 16:31 Respiratory Rate 18 06/12/18 16:31 Blood Pressure 105/66 06/12/18 16:31 O2 Sat by Pulse Oximetry 93 06/12/18 16:31 Temperature 98.0 F 06/12/18 16:31 Pulse Rate 76 06/12/18 18:40 Respiratory Rate 17 06/12/18 18:54 Blood Pressure 127/74 06/12/18 18:40 O2 Sat by Pulse Oximetry 98 06/12/18 18:54 Oxygen Delivery Oxygen Delivery Room Air Medical Decision Making - Lab Data Result diagrams: 06/12/18 16:45 06/12/18 16:45 Lab Results 06/12/18 06/12/18 06/12/18 Range/Units 16:45 16:45 16:45 WBC (4.3-11.1) K/mcL RBC (3.82-4.97) M/mcL Hgb (11.5-15.4) g/dL Hct (35.3-44.9) % MCV (83.0-100.0) fL MCH (28.0-33.3) pg MCHC (31.6-35.5) g/dL RDW (11.5-14.5) % Plt Count (140-400) K/mcL MPV (9.4-12.4) fL Immature Gran % (0-4) % Seg Neutrophils % % Lymphocytes % % Monocytes % % Eosinophils % % Basophils % % Neutrophils # (1.6-8.9) K/mcL Lymphocytes # (0.6-4.6) K/mcL Monocytes # (0.0-1.3) K/mcL Eosinophils # (0.0-0.6) K/mcL Basophils # (0.0-0.2) K/mcL PT 11.6 (9.4-12.1) Seconds INR 1.0 APTT 29.5 (26.0-36.0) Seconds D-Dimer 1015 H (0-500) ng/mLFEU Sodium (136-145) mEq/L Potassium (3.5-5.1) mEq/L Chloride (98-107) mEq/L Carbon Dioxide (23-29) mEq/L BUN (6-20) mg/dL Creatinine (0.60-1.20) mg/dL Est GFR ( Amer) (> 60) Est GFR (Non-Af Amer) (> 60) BUN/Creatinine Ratio (6-26) Glucose (70-105) mg/dL Calculated Osmolality (280-300) Calcium (8.6-10.3) mg/dL Total Bilirubin 0.3 (0.3-1.0) mg/dL Direct Bilirubin 0.0 (0.0-0.2) mg/dL Indirect Bilirubin 0.3 (0.0-1.2) mg/dL AST 14 (13-39) Units/L ALT 7 (7-52) Units/L Alkaline Phosphatase 32 L (34-104) Units/L Troponin I (< 0.04) ng/mL B-Natriuretic Peptide 25 (Less than 100) pg/mL Serum Total Protein 6.9 (6.4-8.9) g/dL Albumin 3.7 (3.5-5.7) g/dL Globulin 3.2 (2.4-3.5) g/dL Albumin/Globulin Ratio 1.2 (1.1-2.2) Lipase 7 L (11-82) Units/L 06/12/18 06/12/18 Range/Units 16:45 16:45 WBC 10.9 (4.3-11.1) K/mcL RBC 3.71 L (3.82-4.97) M/mcL Hgb 11.7 D (11.5-15.4) g/dL Hct 35.4 (35.3-44.9) % MCV 95.4 (83.0-100.0) fL MCH 31.5 (28.0-33.3) pg MCHC 33.1 (31.6-35.5) g/dL RDW 13.6 (11.5-14.5) % Plt Count 327 (140-400) K/mcL MPV 10.5 (9.4-12.4) fL Immature Gran % 1.1 (0-4) % Seg Neutrophils % 66.7 % Lymphocytes % 20.3 % Monocytes % 8.5 % Eosinophils % 2.9 % Basophils % 0.5 % Neutrophils # 7.3 (1.6-8.9) K/mcL Lymphocytes # 2.2 (0.6-4.6) K/mcL Monocytes # 0.9 (0.0-1.3) K/mcL Eosinophils # 0.3 (0.0-0.6) K/mcL Basophils # 0.1 (0.0-0.2) K/mcL PT (9.4-12.1) Seconds INR APTT (26.0-36.0) Seconds D-Dimer (0-500) ng/mLFEU Sodium 129 L (136-145) mEq/L Potassium 3.8 (3.5-5.1) mEq/L Chloride 96 L (98-107) mEq/L Carbon Dioxide 25 (23-29) mEq/L BUN 8 (6-20) mg/dL Creatinine 0.59 L (0.60-1.20) mg/dL Est GFR ( Amer) > 60 (> 60) Est GFR (Non-Af Amer) > 60 (> 60) BUN/Creatinine Ratio 14 (6-26) Glucose 98 (70-105) mg/dL Calculated Osmolality 266 L (280-300) Calcium 9.9 (8.6-10.3) mg/dL Total Bilirubin (0.3-1.0) mg/dL Direct Bilirubin (0.0-0.2) mg/dL Indirect Bilirubin (0.0-1.2) mg/dL AST (13-39) Units/L ALT (7-52) Units/L Alkaline Phosphatase (34-104) Units/L Troponin I < 0.03 (< 0.04) ng/mL B-Natriuretic Peptide (Less than 100) pg/mL Serum Total Protein (6.4-8.9) g/dL Albumin (3.5-5.7) g/dL Globulin (2.4-3.5) g/dL Albumin/Globulin Ratio (1.1-2.2) Lipase (11-82) Units/L Attestation Statement - Attestation Attestation: I examined this patient and my medical decision-making was reviewed with the Resident Physician. I agree with the documented findings, disposition and t reatment plan as described except to the extent set forth below. 57-year-old female presented to the emergency room for chest pain and neck pain. Patient's postop day #5 from an anterior cervical fusion. She presents the ER today for a 3 day history of some left-sided chest pain. She is also complaining of some pain and swelling along the left side of her neck at the incision site. She states the pain in the left side of her neck is getting worse. She is also complaining of worsening chest pain. She denies any history of coronary disease. She is a known smoker. She denies any documented fevers. She states her heart rate was slightly elevated earlier today. On exam, patient has some swelling to the adjacent incision site. Trachea is midline. Patient will get screening lab work as well as a CT soft tissue neck with IV contrast and a CTA of the chest. She is not tachycardic or hypoxic at this time. Her EKG did not show any acute ischemia. We need to rule out soft tissue swelling infection in the left neck region as well as ACS
[2018-06-12 17:18] LABS: Prothrombin Time 11.6 Seconds (9.4-12.1)
[2018-06-12 17:20] LABS: Activated Partial Thrombo Time 29.5 Seconds (26.0-36.0)
[2018-06-12 17:24] LABS: Albumin 3.7 g/dL (3.5-5.7); Albumin/Globulin Ratio 1.2 (1.1-2.2); Bilirubin,Indirect 0.3 mg/dL (0.0-1.2); Bilirubin,Total 0.3 mg/dL (0.3-1.0); Globulin 3.2 g/dL (2.4-3.5); Total Protein 6.9 g/dL (6.4-8.9)
[2018-06-12 17:26] LABS: BUN/Creatinine Ratio 14 (6-26); Blood Urea Nitrogen 8 mg/dL (6-20); Calcium 9.9 mg/dL (8.6-10.3); Carbon Dioxide 25 mEq/L (23-29); Chloride 96 mEq/L (98-107); Glucose 98 mg/dL (70-105); Osmolality,Calculated 266 (280-300); Potassium 3.8 mEq/L (3.5-5.1); Sodium 129 mEq/L (136-145); Troponin I < 0.03 ng/mL (< 0.04); eGFR For Non-African Americans > 60 (> 60)
[2018-06-12] MEDS ORDERED: Dexamethasone 4 MG/ML VIAL IVP ONE (18:54)
--- NOTE | 2018-06-12 20:38 | Internal Med History&Physical ---
<ShadySayra hope - Last Filed: 06/12/18 21:26> Date of Encounter: 06/12/18 Time of Encounter: 20:36 Internal Medicine - H&P: HPI Chief complaint: neck and chest pain Admitted From: Emergency Dept Plans for Post Hospital Care: Home History of present illness: Ms. Blanc is a 57 year old female with past medical history of CAD, obesity, hypertension, tobacco abuse, cervical spinal stenosis. Patient arrived to the emergency department earlier tonight with chief complaint of left-sided neck pain and chest pain. Her neck pain started about 3 days ago. Of note, on 06/07/18, patient had anterior cervical decompression fusion of C4-C7. About 3 days ago, patient started have significant cheerier left-sided neck pain that was 10/10 and constant. She also reports difficulty swallowing and subjective fevers/chills. She denies any exacerbating or relieving factors. Since her surgery, patient denies any falls, injuries. She has had clear colored drainage from her left anterior neck surgical site since her surgery. The significant left-sided neck swelling give her a lot of concern, which brought her to the emergency room. In ED, she received vancomycin, decadron. Patient also complains of left sided sub sternal chest pain 10/10 that started this morning. The chest pain was constant, and there was no radiation of pain Her pain was relieved when she took aspirin. There are no exacerbating factors for chest pain. Patient also reports shortness of breath since her neck surgery as well. She denies nausea, vomiting, diarrhea. She reports intermittent fevers and chills. She denies hematuria and hematochezia. She has smoked 1/2 PPD for about 30 years, and drinks 2 beers per day. She denies any illicit drug use. Past Med Surg Social Fam HX - Past Medical History Medical history: asthma, COPD, hyperlipidemia, hypertension, myocardial infarction, osteoporosis Additional medical history: Cervical Stenosis. Depression/Anxiety. Alcohol Abuse/ Tobacco Abuse. obesity. chronic cervicalgia Psychiatric history: anxiety, depression - Past Surgical History Surgical History: other Additional surgical history: tubal ligation. Carpal Tunnel. Knee arthroscopy- 2015. SCS trial with [employer]. cervicalgia - Social History Smoking Status: Current every day smoker Smokeless Tobacco Status: No Alcohol use: occasionally, heavy, recent Drug use: none - Family History Mother Hx Family Cardiac Disorders: Yes (Congestive Heart Failure) Hx Family Cancer: Yes (UTERINE) Internal Medicine - H&P: Meds Albuterol Sulfate [Proair Hfa] 2 puff IH Q4H PRN 01/14/17 [History] Atorvastatin Calcium [Lipitor] 80 mg PO DAILY 01/14/17 [History] Fenofibrate Nanocrystallized [Triglide] 160 mg PO DAILY 01/14/17 [History] Fluticasone/Vilanterol [Breo Ellipta 100-25 Mcg INH] 1 each IH DAILY 01/14/17 [History] [place]-3/Dha/Epa/Fish Oil [Fish Oil 1,000 mg Softgel] 1,000 mg PO DAILY 01/14/17 [History] Simethicone [Gas-X] 80 mg PO BID 01/14/17 [History] Albuterol Sulfate [Albuterol Inhaler] 2 puff IH QID #1 inhaler 05/21/17 [Rx] Lisinopril [Zestril] 40 mg PO DAILY 06/07/18 [History] OxyCODONE Immed Rel [Roxicodone 5 MG] 5 mg PO Q6HR PRN 7 Days #30 tablet 06/08/18 [Rx] diazePAM [Valium] 5 mg PO TID PRN 06/08/18 [History] Acamprosate Calcium 666 mg PO TID 06/12/18 [History] Gabapentin [Neurontin] 1,200 mg PO TID 06/12/18 [History] Loratadine [Claritin] 10 mg PO DAILY 06/12/18 [History] Montelukast [Singulair] 10 mg PO DAILY 06/12/18 [History] PARoxetine HCl [Paroxetine HCl] 20 mg PO DAILY 06/12/18 [History] Trazodone HCl 250 mg PO HS 06/12/18 [History] risperiDONE [Risperidone] 4 mg PO HS 06/12/18 [History] Allergy/AdvReac Type Severity Reaction Status Date / Time acetaminophen AdvReac Headache Verified 06/07/18 09:08 [From Darvocet-N] celecoxib [From Celebrex] AdvReac Depression Verified 06/08/18 06:28 hydrocodone [From Vicodin] AdvReac Diarrhea Verified 06/08/18 06:28 ibuprofen AdvReac Gastrointestinal Verified 06/08/18 06:28 Upset naproxen [From Naprosyn] AdvReac Headache Verified 06/06/18 10:26 propoxyphene AdvReac Headache Verified 06/07/18 09:08 [From Darvocet-N] tramadol AdvReac Hives Verified 06/08/18 10:10 All Systems PM: A 10-system review of systems was performed and is negative for pertinent findings except as documented above in the HPI. - Constitutional Constitutional: as per HPI - EENT Eyes: as per HPI Ears: as per HPI Nose, mouth and throat: as per HPI - Breasts Breasts: as per HPI - Cardiovascular Cardiovascular ROS IM: as per HPI - Respiratory Respiratory: as per HPI - Gastrointestinal Gastrointestinal: as per HPI - Genitourinary Genitourinary: as per HPI Menstruation: as per HPI - Musculoskeletal Musculoskeletal ROS IM: as per HPI - Integumentary Integumentary IM: as per HPI - Neurological Neurological ROS: as per HPI - Psychiatric Psychiatric: as per HPI - Endocrine Endocrine IM: as per HPI - Hematologic/Lymphatic Hematologic/Lymphatic: as per HPI - Allergic/Immunologic Allergic/Immunologic: as per HPI - Constitutional Vitals: Temp Pulse Resp BP Pulse Ox 98.0 F 80 18 124/69 94 06/12/18 16:31 06/12/18 20:08 06/12/18 20:08 06/12/18 20:08 06/12/18 20:08 General appearance: Present: A&O X 3, pleasant, no acute distress, answers questions appropriately Exam: alert and oriented x3, pleasant, no acute distress - Head Head exam: Present: atraumatic Additional comments: atraumatic head. - Neck Neck exam general surgery: Present: normal inspection, tenderness Additional comments: left sided scar from prior surgery. [id number] fluid collection on left neck that is tender to palpation. - Respiratory Respiratory exam: Present: wheezes. Absent: accessory muscle use - Cardiovascular Cardiovascular exam: Present: RRR, +S1, +S2 Additional comments: reproducible left anterior chest pain. - GI/Abdominal GI/Abdominal exam: Present: normal bowel sounds, soft. Absent: distended, tenderness - Extremities Exam Extremities exam: Absent: cyanotic, pedal edema - Neurological Exam Neurological exam: Present: alert, oriented X3, no focal deficits - Skin Skin exam: Present: dry, intact. Absent: abrasion Internal Med - H&P Results - Labs CBC & Chem 7: 06/12/18 16:45 06/12/18 16:45 Labs: Short CBC 06/12/18 Range/Units 16:45 WBC 10.9 (4.3-11.1) K/mcL Hgb 11.7 D (11.5-15.4) g/dL Hct 35.4 (35.3-44.9) % Plt Count 327 (140-400) K/mcL Neutrophils # 7.3 (1.6-8.9) K/mcL BMP 06/12/18 16:45 Sodium 129 L Potassium 3.8 Chloride 96 L Carbon Dioxide 25 BUN 8 Creatinine 0.59 L Glucose 98 Calcium 9.9 Cardiac Enzymes 06/12/18 Range/Units 16:45 Troponin I < 0.03 (< 0.04) ng/mL Liver Function 06/12/18 Range/Units 16:45 Total Bilirubin 0.3 (0.3-1.0) mg/dL Direct Bilirubin 0.0 (0.0-0.2) mg/dL AST 14 (13-39) Units/L ALT 7 (7-52) Units/L Alkaline Phosphatase 32 L (34-104) Units/L Albumin 3.7 (3.5-5.7) g/dL - Impressions ITS Impressions Chest X-Ray 06/12/18 16:46 IMPRESSION: No acute cardiopulmonary disease. D/ / Taran Talbert MD / Taran Talbert MD Interpreting Provider: Taran Talbert MD Chest CTA 06/12/18 16:55 IMPRESSION: 1. No evidence of pulmonary embolic disease. 2. No acute pulmonary findings. 3. Ectasia of the ascending aorta at 4.0 cm maximally. Atherosclerotic calcification in the aorta and coronary circulation. Reflux opacification of the IVC and hepatic veins suggesting elevated right heart pressures. D/ / 06/12/2018 18:44:31 Taran Talbert MD / shai Interpreting Provider: Taran Talbert MD Neck CTA 06/12/18 17:05 IMPRESSION: Status post recent anterior cervical fusion with placement of the intervertebral disc spacer. Evaluation of the structure immediately adjacent to the surgical hardware appears limited due to streak artifact. Nonspecific sclerosis involving the C4 and C5 vertebral body. Unorganized fluid collection within the left anterolateral aspect of the neck, with a few foci of gas. Inflammation and edema is seen to extend into the left oropharynx, left hypopharynx, and left larynx. There is slight rightward deviation of the aerodigestive tract. Small amount of retropharyngeal edema and fluid. While these findings could be postsurgical given recent history of surgery, superimposed infection is not excluded by this examination. Mild narrowing of the laryngeal airway as a result of this process. Clinical correlation is recommended. Approximately 70% stenosis involving the proximal left internal carotid artery, just distal to the left carotid bifurcation. Evaluation of subtle intimal injury is limited due to poor opacification and pre-existing atherosclerotic disease. No evidence of pseudoaneurysm, or active arterial extravasation. Right vertebral artery is not well seen. There is intermittent opacification. This may represent atherosclerotic disease involving the congenitally small right vertebral artery. This is not further evaluated. No evidence of high-grade stenosis or focal occlusion involving the left vertebral artery. The right carotid artery appears unremarkable. The intracranial internal carotid arteries are not well evaluated due to extensive vessel wall calcium. RECOMMENDATIONS: Recommend short interval follow-up examination to document resolution of above described findings. D/ / 06/12/2018 18:58:48 Valente Bravo MD / Elizabeth Rocha Interpreting Provider: Valente Bravo MD - Assessment and plan (1) Neck swelling Current Visit: Yes Status: Acute Assessment and plan: On 06/07, patient had anterior cervical decompression and diffusion of C4-C7 by Dr. Marie. Patient complains of significant swelling of left anterior neck with significant neck pain. CTA neck showed unorganized fluid collection in left anterolateral aspect of neck, inflammation, edema, with significant rightward deviation of the airway. patient received vancomycin, decadron in ED Plan: patient received decadron in ED. Continue with solulmedrol. discuss case with Dr. Marie. Appreciate recommendations. He states he will see patient tonight and take her to OR tomorrow morning. Blood cultures x2 NPO will do extensive anaerobic coverage with vancomycin, zosyn, flagyl-Day 1 continuous tele, pulse oximetry. continue to monitor patient closely in ICU setting. If she starts to decompensate or develop respiratory distress, will have low threshold for endotracheal intubation to protect airway. Case already discussed with anesthesiology (2) COPD exacerbation Current Visit: Yes Status: Acute Assessment and plan: She reports shortness of breath, increased sputum production. Plan: scheduled DuoNebs antibiotics as above solumedrol 40q8 (3) Chest pain Current Visit: Yes Status: Acute Assessment and plan: left substernal chest pain-suspect non cardiac chest pain. Chest pain was also reproducible on exam. initial troponin negative chest CTA showed no evidence of PE no EKG changes. Plan: trend troponin q6H Qualifiers: Chest pain type: unspecified Qualified Code(s): R07.9 - Chest pain, unspecified (4) History of coronary artery disease Current Visit: No Status: Acute Assessment and plan: Keep NPO, hold all PO meds for now until evaluated by spine and ENT. (5) Hyponatremia Current Visit: No Status: Acute Assessment and plan: History of chronic hyponatremia euvolemic on exam continue to monitor (6) History of hypertension Current Visit: No Status: Chronic Assessment and plan: Hydralazine PRN (7) Smoker Current Visit: No Status: Chronic Assessment and plan: History of smoking 1/2 per day for 30 years nicotine patch PRN for tobacco craving smoking cessation advised (8) DVT prophylaxis Current Visit: Yes Status: Acute Assessment and plan: Heparin SQ - Time Spent With Patient Total time spent is greater than 50% in coordination of care (as documented) at patient's floor/unit and/or counseling patient: <ShondaArmin - Last Filed: 06/13/18 00:24> Date of Encounter: 06/12/18 Time of Encounter: 21:20 - Constitutional Constitutional: chills, fever(s) - EENT Nose, mouth and throat: dysphagia, neck mass, neck pain, odynophagia, sore throat, no change in voice - Cardiovascular Cardiovascular ROS IM: chest pain, dyspnea - Respiratory Respiratory: wheezing, no hemoptysis, no chest congestion, no excessive phlegm production - Gastrointestinal Gastrointestinal: nausea, no vomiting - Constitutional Vitals: Temp Pulse Resp BP Pulse Ox 98.2 F 72 24 147/71 93 11/05/18 21:07 06/12/18 21:07 06/12/18 21:07 06/12/18 21:07 06/12/18 21:07 General appearance: Present: A&O X 3, pleasant, no acute distress, answers que stions appropriately Exam: no respiratory distress at this time; patient protecting airway - Head Head exam: Present: normal inspection - Eye Eye exam: Present: EOMI, PERRL. Absent: scleral icterus - ENT ENT exam: Present: mucous membranes dry, normal oropharynx - Neck Neck exam general surgery: Present: tenderness. Absent: nuchal rigidity, trachea midline (deviated to the right) Additional comments: mild redness; moderate fluctuation, significant tenderness along left anterior neck/surgical site - Respiratory Respiratory exam: Present: wheezes. Absent: accessory muscle use, chest wall tenderness, rales, respiratory distress, rhonchi, stridor, tachypnea - Cardiovascular Cardiovascular exam: Present: RRR, +S1, +S2 - GI/Abdominal GI/Abdominal exam: Present: normal bowel sounds, soft. Absent: tenderness - Extremities Exam Extremities exam: Present: warm, radial pulses palpable and symmetrical. Absent: calf tenderness, pedal edema Internal Med - H&P Results - Labs CBC & Chem 7: 06/12/18 16:45 06/12/18 16:45 Labs: Short CBC 06/12/18 Range/Units 16:45 WBC 10.9 (4.3-11.1) K/mcL Hgb 11.7 D (11.5-15.4) g/dL Hct 35.4 (35.3-44.9) % Plt Count 327 (140-400) K/mcL Neutrophils # 7.3 (1.6-8.9) K/mcL BMP 06/12/18 16:45 Sodium 129 L Potassium 3.8 Chloride 96 L Carbon Dioxide 25 BUN 8 Creatinine 0.59 L Glucose 98 Calcium 9.9 Cardiac Enzymes 06/12/18 Range/Units 16:45 Troponin I < 0.03 (< 0.04) ng/mL Liver Function 06/12/18 Range/Units 16:45 Total Bilirubin 0.3 (0.3-1.0) mg/dL Direct Bilirubin 0.0 (0.0-0.2) mg/dL AST 14 (13-39) Units/L ALT 7 (7-52) Units/L Alkaline Phosphatase 32 L (34-104) Units/L Albumin 3.7 (3.5-5.7) g/dL - Impressions ITS Impressions Chest X-Ray 06/12/18 16:46 IMPRESSION: No acute cardiopulmonary disease. D/ / Taran Talbert MD / Taran Talbert MD Interpreting Provider: Taran Talbert MD Chest CTA 06/12/18 16:55 IMPRESSION: 1. No evidence of pulmonary embolic disease. 2. No acute pulmonary findings. 3. Ectasia of the ascending aorta at 4.0 cm maximally. Atherosclerotic calcification in the aorta and coronary circulation. Reflux opacification of the IVC and hepatic veins suggesting elevated right heart pressures. D/ / 06/12/2018 18:44:31 Taran Talbert MD / shai Interpreting Provider: Taran Talbert MD Neck CTA 06/12/18 17:05 IMPRESSION: Status post recent anterior cervical fusion with placement of the intervertebral disc spacer. Evaluation of the structure immediately adjacent to the surgical hardware appears limited due to streak artifact. Nonspecific sclerosis involving the C4 and C5 vertebral body. Unorganized fluid collection within the left anterolateral aspect of the neck, with a few foci of gas. Inflammation and edema is seen to extend into the left oropharynx, left hypopharynx, and left larynx. There is slight rightward deviation of the aerodigestive tract. Small amount of retropharyngeal edema and fluid. While these findings could be postsurgical given recent history of surgery, superimposed infection is not excluded by this examination. Mild narrowing of the laryngeal airway as a result of this process. Clinical correlation is recommended. Approximately 70% stenosis involving the proximal left internal carotid artery, just distal to the left carotid bifurcation. Evaluation of subtle intimal injury is limited due to poor opacification and pre-existing atherosclerotic disease. No evidence of pseudoaneurysm, or active arterial extravasation. Right vertebral artery is not well seen. There is intermittent opacification. This may represent atherosclerotic disease involving the congenitally small right vertebral artery. This is not further evaluated. No evidence of high-grade stenosis or focal occlusion involving the left vertebral artery. The right carotid artery appears unremarkable. The intracranial internal carotid arteries are not well evaluated due to extensive vessel wall calcium. RECOMMENDATIONS: Recommend short interval follow-up examination to document resolution of above described findings. D/ / 06/12/2018 18:58:48 Valente Bravo MD / Elizabeth Rocha Interpreting Provider: Valente Bravo MD - Time Spent With Patient Total time spent is greater than 50% in coordination of care (as documented) at patient's floor/unit and/or counseling patient: - Attending Attestation I discussed the patient NOORVIK, PMH, ROS, lab data, exam findings, and imaging findings with Dr. Nicholas. I then saw and examined patient indepedently as well. Upon my assessment of the patient in the intensive care unit, patient does complain of significant pain, swelling, and fullness to her left side of the neck by her surgical site. She denies any difficulty breathing presently, drooling, wheezing, or any stridor. She does complain of painful and difficulty swallowing. She also had some mild shortness of breath and chest tightness earlier today. She admits to having had subjective fevers and chills but there are no fevers documented. I reviewed her CT scan imaging and noted the narrowed airway and tracheal deviation. I am quite concerned about potential airway issue. I therefore contacted anesthesia and ENT. I discussed the case with them in case with need urgent intubation tonight. They are available. I then called and spoke with Dr. Youssef and informed him of the situation and asked his assistance in the matter. He will see patient, review CT scan of the neck, and plan to take her surgery early in the morning. Presently, patient is stable, breathing easily, and resting comfortably in the intensive care unit. I spoke with ENT again after she reviewed CT scan, and she reassured me that she does not feel the airway will be significantly compromised tonight. Should we need her, however, she is readily available to come in to see the patient and assist with airway management. For the time being, she will be kept nothing by mouth, on IV antibiotics, aerosols, and steroids. Cultures have been obtained. We'll also trend troponins, but I do not anticipate any cardiac source of chest pain. Other than my comments above and noted exam findings, I agree with Dr. Nicholas's assessment and plan.
[2018-06-12] MEDS ORDERED: Naloxone 0.4 MG/ML INJ IVP PRN (20:53)
[2018-06-12] MEDS ORDERED: Ondansetron ODT 4 MG TAB.RAPDIS SL PRN (20:53)
[2018-06-12] MEDS ORDERED: OXYCODONE Oral CONC 10 MG/0.5 ML ORAL.SYG SL PRN (20:53)
[2018-06-12] MEDS ORDERED: Nicotine 7 MG PATCH.TD24 TD PRN (21:01)
[2018-06-12] MEDS: *HR* Heparin 5,000 UNIT/ML VIAL SQ SCH (21:37)
[2018-06-12] MEDS: Ketorolac 15 MG/ML VIAL IVP PRN (21:37)
[2018-06-12] MEDS: MetroNIDAZOLE 500 MG/100 ML 500 MG/100 ML BAG IVPB SCH (23:30)
[2018-06-13] MEDS ORDERED: Cefepime HCl 2,000 MG in Water for inj. (sterile) 20 ML 20 ML IVP SCH
[2018-06-13] MEDS: Ipratropium/Albuterol Neb 3 ML IH SCH ×4 (00:04→11:45)
[2018-06-13] MEDS: Piperacillin/Tazobactam 3.375 GM in 0.9 % Sodium Chloride Mini Bag 100 ML IVPB SCH ×2 (00:30→07:44)
[2018-06-13] MEDS: MethylPREDNISolone 40 MG/ML VIAL IVP SCH ×3 (00:30→23:10)
[2018-06-13 04:55] LABS: Basophils % 0.3 %; Hematocrit 38.2 % (35.3-44.9); Hemoglobin 12.7 g/dL (11.5-15.4); Immature Granulocytes % 1.2 % (0-4); Lymphocytes # 0.7 K/mcL (0.6-4.6); Mean Corpuscular HGB Conc 33.2 g/dL (31.6-35.5); Mean Corpuscular Hemoglobin 31.5 pg (28.0-33.3); Mean Corpuscular Volume 94.8 fL (83.0-100.0); Mean Platelet Volume 10.2 fL (9.4-12.4); Monocytes # 0.1 K/mcL (0.0-1.3); Monocytes % 1.2 %; Neutrophils # 6.7 K/mcL (1.6-8.9); Platelet Count 339 K/mcL (140-400); Red Blood Count 4.03 M/mcL (3.82-4.97); Red Cell Distribution Width 13.6 % (11.5-14.5); Segmented Neutrophils % 88.3 %
[2018-06-13 05:30] LABS: Alanine Aminotransferase 7 Units/L (7-52); Albumin/Globulin Ratio 1.3 (1.1-2.2); Alkaline Phosphatase 36 Units/L (34-104); Aspartate Amino Transferase 13 Units/L (13-39); BUN/Creatinine Ratio 17 (6-26); Bilirubin,Total 0.3 mg/dL (0.3-1.0); Blood Urea Nitrogen 10 mg/dL (6-20); Calcium 10.2 mg/dL (8.6-10.3); Carbon Dioxide 22 mEq/L (23-29); Chloride 101 mEq/L (98-107); Globulin 3.2 g/dL (2.4-3.5); Glucose 150 mg/dL (70-105); Magnesium 1.8 mg/dL (1.6-2.6); Osmolality,Calculated 276 (280-300); Potassium 4.8 mEq/L (3.5-5.1); Sodium 132 mEq/L (136-145); Total Protein 7.2 g/dL (6.4-8.9); eGFR For Non-African Americans > 60 (> 60)
[2018-06-13] MEDS: *HR* Heparin 5,000 UNIT/ML VIAL SQ SCH ×3 (06:09→18:30)
--- NOTE | 2018-06-13 08:11 | Spine Progress Note ---
Date of Encounter: 06/13/18 Time of Encounter: 08:09 Subjective Principal diagnosis: s/p cervical fusion Interval history: Patient well known to me is s/p 2 level cervical fusion last week. Denies swallowing difficulties. Developed some respiratory distress and anterior neck swelling and was admitted for management. AFVSS. Respiratory rate 16, O2 saturation 96%. Neck with moderate amount of swelling below incision consistent with maturing hematoma. No fluctuance, drainage, or purulence. No erythema. Fires all upper extremity motor groups. CT scan with postsurgical changes. Impression: 1) s/p cervical fusion. 2) small- moderate postoperative hematoma sub incisional. 3) Respiratory status stable. Plan: Observe in step down unit. Advance diet. May mobilize. Swallow evaluation if difficulty with diet advance. Objective Vital signs: Vital Signs Temp Pulse Resp BP Pulse Ox 06/13/18 07:35 16 96 06/13/18 07:00 98.6 F 80 16 149/71 94 06/13/18 06:00 86 20 108/72 95 06/13/18 05:00 98 18 171/91 93 06/13/18 04:20 98.1 F 85 16 141/85 92 06/13/18 03:48 16 178/83 91 06/13/18 03:00 75 18 158/82 90 06/13/18 02:00 73 20 167/83 91 06/13/18 01:00 98.0 F 80 20 168/68 92 06/13/18 00:04 18 152/78 91 06/13/18 00:00 98.4 F 67 18 137/63 92 06/12/18 23:00 66 18 131/60 90 06/12/18 22:00 76 16 158/82 91 06/12/18 21:07 98.2 F 72 24 147/71 93 06/12/18 20:08 80 18 124/69 94 06/12/18 18:54 17 98 06/12/18 18:40 76 16 127/74 97 06/12/18 16:31 98.0 F 76 18 105/66 93 Intake and Output 06/12/18 06/13/18 06/13/18 23:59 07:59 15:59 Intake Total 250 / 250 200 / 200 Output Total 450 / 450 300 / 300 Balance -200 / -200 -100 / -100 Intake: IV Fluids 250 / 250 200 / 200 Flagyl Premix 500 MG/100 ML 500 100 / 100 mg In 100 ml @ 100 mls/hr IVPB Q8HR [facility] Rx#:[id number] Zosyn 3.375 GM In 0.9 % Sodium 100 / 100 Chloride (Mini-Bag +) 100 ML @ 25 mls/hr IVPB Q8HR [facility] Rx#: [id number] Vancocin 1,500 MG In 0.9 % 250 / 250 Sodium Chloride 250 ML @ 166.67 mls/hr IVPB ONCE ONE Rx#: [id number] Oral 0 / 0 0 / 0 Output: Urine 450 / 450 300 / 300 Other: Stool Size Small Stool Consistency soft formed Stool Characteristics Normal for Patient Stool Color Brown Weight 103.6 kg 103.6 kg Blood Glucose* 108 Patient Weight 06/13/18 23:59 Weight 103.6 kg - Labs CBC & BMP: 06/13/18 04:43 06/13/18 04:43 Labs: Abnormal lab results D-Dimer 1015 ng/mLFEU (0-500) H 06/12/18 16:45 Sodium 132 mEq/L (136-145) L 06/13/18 04:43 Carbon Dioxide 22 mEq/L (23-29) L 06/13/18 04:43 Glucose 150 mg/dL (70-105) H 06/13/18 04:43 POC Glucose 108 mg/dL (70-99) H 06/12/18 21:02 Calculated Osmolality 276 (280-300) L 06/13/18 04:43 Lipase 7 Units/L (11-82) L 06/12/18 16:45 Consult Discharge Plan - Plan Referrals: Bakari Love DO [Primary Care Provider] -
[2018-06-13] MEDS ORDERED: Aminoglycoside Consult 1 EACH MC ONE (10:09)
[2018-06-13] MEDS: MetroNIDAZOLE 500 MG/100 ML 500 MG/100 ML BAG IVPB SCH (10:23)
[2018-06-13] MEDS ORDERED: diazePAM 5 MG TABLET PO PRN ×2 (10:46→10:58)
--- NOTE | 2018-06-13 10:54 | Internal Med Progress Note ---
Hospitalist Progress Note - Encounter Date of Encounter: 06/13/18 Time of Encounter: 10:51 - Subjective Interval History: Patient with history of COPD, morbid obesity, high cholesterol, hypertension, CAD, alcohol abuse, and cervical stenosis patient recently admitted underwent left neck anterior cervical decompression June 07 with C4-7 fusion patient yesterday with with progressive increased left neck pain with some swelling CT of the neck showed fluid collection was admitted to the ICU and had orthopedic follow-up evaluation evaluation shows the collection is likely hematoma and no surgery indicated today patient will be transferred to the stepdown unit for fu patient on multiple antibiotics which we will de- escalate - Exam Vitals: Temp Pulse Resp BP Pulse Ox 98.6 F 84 22 167/82 96 06/13/18 07:00 06/13/18 09:00 06/13/18 09:00 06/13/18 09:00 06/13/18 09:00 Exam: no respiratory distress at this time; patient protecting airway - Assessment and Plan (1) History of coronary artery disease Current Visit: No Status: Acute Assessment and Plan: No chest pain we will continue home medication (2) Obesity Current Visit: Yes Status: Chronic (3) Smoker Current Visit: No Status: Chronic Assessment and Plan: Chronic (4) History of COPD Current Visit: No Status: Chronic Assessment and Plan: No active wheezing at present (5) Alcohol abuse Current Visit: No Status: Chronic Assessment and Plan: Patient at risk for withdrawal syndrome we will resume her benzodiazepine (6) Neck pain on left side Current Visit: Yes Status: Acute Assessment and Plan: CT of the neck shows post surgical collection by orthopedic evaluation likely hematoma and not infectious Continue vancomycin and continue Zosyn (7) Encounter for post surgical wound check Current Visit: Yes Status: Acute - Time Spent with Patient Total time spent is greater than 50% in coordination of care (as documented) at patient's floor/unit and/or counseling patient: Internal Medicine: Result - Labs CBC & Chem 7: 06/13/18 04:43 06/13/18 04:43 Labs: Short CBC 06/12/18 06/13/18 Range/Units 16:45 04:43 WBC 10.9 7.5 (4.3-11.1) K/mcL Hgb 11.7 D 12.7 (11.5-15.4) g/dL Hct 35.4 38.2 (35.3-44.9) % Plt Count 327 339 (140-400) K/mcL Neutrophils # 7.3 6.7 (1.6-8.9) K/mcL BMP 06/12/18 06/13/18 16:45 04:43 Sodium 129 L 132 L Potassium 3.8 4.8 D Chloride 96 L 101 Carbon Dioxide 25 22 L BUN 8 10 Creatinine 0.59 L 0.60 Glucose 98 150 H Calcium 9.9 10.2 Cardiac Enzymes 06/12/18 06/12/18 06/13/18 Range/Units 16:45 21:31 04:43 Troponin I < 0.03 < 0.03 < 0.03 (< 0.04) ng/mL Liver Function 06/12/18 06/13/18 Range/Units 16:45 04:43 Total Bilirubin 0.3 0.3 (0.3-1.0) mg/dL Direct Bilirubin 0.0 (0.0-0.2) mg/dL AST 14 13 (13-39) Units/L ALT 7 7 (7-52) Units/L Alkaline Phosphatase 32 L 36 (34-104) Units/L Albumin 3.7 4.0 (3.5-5.7) g/dL - ABG Interpretation ABG results: PT/INR, D-dimer PT 11.6 Seconds (9.4-12.1) 06/12/18 16:45 D-Dimer 1015 ng/mLFEU (0-500) H 06/12/18 16:45 - Impressions Impressions Chest X-Ray 06/12/18 16:46 IMPRESSION: No acute cardiopulmonary disease. D/ / Taran Talbert MD / Taran Talbert MD Interpreting Provider: Taran Talbert MD Chest CTA 06/12/18 16:55 IMPRESSION: 1. No evidence of pulmonary embolic disease. 2. No acute pulmonary findings. 3. Ectasia of the ascending aorta at 4.0 cm maximally. Atherosclerotic calcification in the aorta and coronary circulation. Reflux opacification of the IVC and hepatic veins suggesting elevated right heart pressures. D/ / 06/12/2018 18:44:31 Taran Talbert MD / shai Interpreting Provider: Taran Talbert MD Neck CTA 06/12/18 17:05 IMPRESSION: Status post recent anterior cervical fusion with placement of the intervertebral disc spacer. Evaluation of the structure immediately adjacent to the surgical hardware appears limited due to streak artifact. Nonspecific sclerosis involving the C4 and C5 vertebral body. Unorganized fluid collection within the left anterolateral aspect of the neck, with a few foci of gas. Inflammation and edema is seen to extend into the left oropharynx, left hypopharynx, and left larynx. There is slight rightward deviation of the aerodigestive tract. Small amount of retropharyngeal edema and fluid. While these findings could be postsurgical given recent history of surgery, superimposed infection is not excluded by this examination. Mild narrowing of the laryngeal airway as a result of this process. Clinical correlation is recommended. Approximately 70% stenosis involving the proximal left internal carotid artery, just distal to the left carotid bifurcation. Evaluation of subtle intimal injury is limited due to poor opacification and pre-existing atherosclerotic disease. No evidence of pseudoaneurysm, or active arterial extravasation. Right vertebral artery is not well seen. There is intermittent opacification. This may represent atherosclerotic disease involving the congenitally small right vertebral artery. This is not further evaluated. No evidence of high-grade stenosis or focal occlusion involving the left vertebral artery. The right carotid artery appears unremarkable. The intracranial internal carotid arteries are not well evaluated due to extensive vessel wall calcium. RECOMMENDATIONS: Recommend short interval follow-up examination to document resolution of above described findings. D/ / 06/12/2018 18:58:48 Valente Bravo MD / Elizabeth Rocha Interpreting Provider: Valente Bravo MD Consult Discharge Plan - Plan Referrals: Bakari Love DO [Primary Care Provider] - (2) Obesity Qualifiers: Obesity type: due to excess calories
[2018-06-13] MEDS ORDERED: *HR* OxyCODONE Immed Rel 5 MG TABLET PO PRN (10:58)
[2018-06-13] MEDS: Ketorolac 15 MG/ML VIAL IVP PRN (11:52)
[2018-06-13] MEDS ORDERED: ACAMPROSATE CALCIUM 666 MG PO SCH (15:00)
[2018-06-13] MEDS ORDERED: Gabapentin 400 MG CAPSULE PO SCH (15:00)
[2018-06-13] MEDS ORDERED: (Acamprosate Calcium [Acamprosate Calcium] 666 MG) PO SCH (15:00)
[2018-06-13] MEDS ORDERED: DIAZEPAM INTENSOL 5 MG/ML PO PRN (16:57)
[2018-06-13] MEDS ORDERED: Ketorolac 15 MG/ML VIAL IVP PRN (16:59)
[2018-06-13] MEDS ORDERED: Ondansetron ODT 4 MG TAB.RAPDIS SL PRN (17:02)
[2018-06-13] MEDS: *HR* OxyCODONE Immed Rel 5 MG TABLET PO PRN (18:30)
[2018-06-13] MEDS: Lisinopril 20 MG TABLET PO SCH (20:17)
[2018-06-13] MEDS: Gabapentin 300 MG CAPSULE PO SCH (20:17)
[2018-06-13] MEDS: Budesonide/Formoterol 80/4.5 MDI IH SCH (20:31)
[2018-06-13] MEDS ORDERED: risperiDONE 1 MG, risperiDONE 3 MG PO SCH (21:00)
[2018-06-13] MEDS ORDERED: traZODone 50 MG TABLET PO SCH ×2 (21:00)
[2018-06-13] MEDS ORDERED: Lisinopril 20 MG TABLET PO SCH (21:00)
[2018-06-13] MEDS ORDERED: RISPERIDONE 4 MG PO SCH (21:00)
[2018-06-13] MEDS ORDERED: risperiDONE 1 MG TABLET PO SCH (21:00)
[2018-06-13] MEDS ORDERED: Budesonide/Formoterol 160/4.5 1 PUFF INH IH SCH (22:00)
[2018-06-13] MEDS: Cefepime HCl 2,000 MG in Water for inj. (sterile) 20 ML 20 ML IVP SCH (23:10)
[2018-06-14] MEDS ORDERED: Piperacillin/Tazobactam 3.375 GM in 0.9 % Sodium Chloride Mini Bag 100 ML IVPB SCH
[2018-06-14] MEDS: *HR* OxyCODONE Immed Rel 5 MG TABLET PO PRN (04:08)
[2018-06-14] MEDS: *HR* Heparin 5,000 UNIT/ML VIAL SQ SCH (05:48)
[2018-06-14] MEDS: Budesonide/Formoterol 80/4.5 MDI IH SCH (07:41)
[2018-06-14] MEDS: Cefepime HCl 2,000 MG in Water for inj. (sterile) 20 ML 20 ML IVP SCH ×2 (08:54→15:25)
[2018-06-14] MEDS: MethylPREDNISolone 40 MG/ML VIAL IVP SCH ×2 (08:56→15:25)
[2018-06-14] MEDS: Lisinopril 20 MG TABLET PO SCH (08:57)
[2018-06-14] MEDS: Gabapentin 300 MG CAPSULE PO SCH ×2 (08:57→15:25)
[2018-06-14] MEDS ORDERED: Loratadine 10 MG TABLET PO SCH ×2 (09:00)
[2018-06-14] MEDS ORDERED: (Fluticasone/Vilanterol [Breo Ellipta 100-25 Mcg Inh] IH SCH (09:00)
[2018-06-14] MEDS ORDERED: Fenofibrate 54 MG TABLET PO SCH ×2 (09:00)
[2018-06-14] MEDS ORDERED: Nicotine 14 MG PATCH.TD24 TD SCH (09:00)
[2018-06-14] MEDS ORDERED: (Omega-3/Dha/Epa/Fish Oil [Fish Oil 1,000 Mg Softgel] PO SCH (09:00)
[2018-06-14] MEDS ORDERED: MetroNIDAZOLE 500 MG/100 ML 500 MG/100 ML BAG IVPB SCH ×2 (11:02→16:00)
[2018-06-14] MEDS ORDERED: *HR* OxyCODONE Immed Rel 5 MG TABLET PO PRN (11:07)
[2018-06-14 11:30] VITALS: BP 153/80
--- NOTE | 2018-06-14 15:15 | Discharge Summary ---
- NOTES TO OUTPATIENT PROVIDER Notes to Outpatient Provider: PCP in 5 to 7 days. follow p with Dr. Youssef morning of Jun 16 Orders not resulted at time of discharge: Pending orders 06/12/18 21:31 Culture,Blood [BC] Stat Date of Encounter: 06/14/18 Time of Encounter: 14:57 - Discharge Diagnosis (1) Neck pain on left side Priority: Primary Status: Acute Assessment and Plan: Pt is s/p CT of the neck showed post surgical collection by orthopedic evaluation likely hematoma and not infectious Received vancomycin and Zosyn then switched to Cefepime. No leukocytosis and WBC WNL. Will DC on steriod taper and Augmentin for 5 days. NEck swelling much ,proved per patient. Tolerating regular diet and denies difficulty in swallowing. Seen by spine surgeon and will have her follow up out pt with Dr. Youssef Tue, Jun 16 (2) Encounter for post surgical wound check Priority: Primary Status: Acute Assessment and Plan: See above (3) History of coronary artery disease Priority: Secondary Status: Acute (4) Smoker Priority: Secondary Status: Chronic Assessment and Plan: Cessation strongly advised. (5) Alcohol abuse Priority: Secondary Status: Chronic (6) COPD exacerbation Priority: Primary Status: Acute Assessment and Plan: Pt ad mild exacerbation of COPD which has responded to nebs and steroid. Has resolved. Pt not on ome oxygen and saturation is 96% on room air. Will DC on taper steroid. Pt states she does have nebs at home. Hospital course: History of present illness: Dr. Nicholas Ms. Blanc is a 57 year old female with past medical history of CAD, obesity, hypertension, tobacco abuse, cervical spinal stenosis. Patient arrived to the emergency department earlier tonight with chief complaint of left-sided neck pain and chest pain. Her neck pain started about 3 days ago. Of note, on 06/07/18, patient had anterior cervical decompression fusion of C4-C7. About 3 days ago, patient started have significant cheerier left-sided neck pain that was 10/10 and constant. She also reports difficulty swallowing and subjective fevers/chills. She denies any exacerbating or relieving factors. Since her surgery, patient denies any falls, injuries. She has had clear colored drainage from her left anterior neck surgical site since her surgery. The significant left-sided neck swelling give her a lot of concern, which brought her to the emergency room. In ED, she received vancomycin, decadron. Patient also complains of left sided sub sternal chest pain 10/ that started this morning. The chest pain was constant, and there was no radiation of pain Her pain was relieved when she took aspirin. There are no exacerbating factors for chest pain. Patient also reports shortness of breath since her neck surgery as well. She denies nausea, vomiting, diarrhea. She reports intermittent fevers and chills. She denies hematuria and hematochezia. She has smoked 1/2 PPD for about 30 years, and drinks 2 beers per day. She denies any illicit drug use. Discharge discussed with: patient - Time Spent with Patient Total time spent providing and/or coordinating discharge services: Greater than 30 minutes - Discharge Medications Prescriptions: Amoxicillin/Clavulanate [Augmentin] 500 mg PO BIDWM 5 Days #10 tablet predniSONE [Prednisone] See Taper PO DAILY #21 [email or web address] Home Medications: Albuterol Sulfate [Proair Hfa] 2 puff IH Q4H PRN 01/14/17 [History] Atorvastatin Calcium [Lipitor] 80 mg PO DAILY 01/14/17 [History] Fenofibrate Nanocrystallized [Triglide] 160 mg PO DAILY 01/14/17 [History] Fluticasone/Vilanterol [Breo Ellipta 100-25 Mcg INH] 1 each IH DAILY 01/14/17 [History] Nyssa-3/Dha/Epa/Fish Oil [Fish Oil 1,000 mg Softgel] 1,000 mg PO DAILY 01/14/17 [History] Lisinopril [Zestril] 40 mg PO BID 06/07/18 [History] OxyCODONE Immed Rel [Roxicodone 5 MG] 5 mg PO Q6HR PRN 7 Days #30 tablet 06/08/18 [Rx] diazePAM [Valium] 5 mg PO TID PRN 06/08/18 [History] Acamprosate Calcium 666 mg PO TID 06/12/18 [History] Gabapentin [Neurontin] 1,200 mg PO TID 06/12/18 [History] Loratadine [Claritin] 10 mg PO DAILY 06/12/18 [History] Montelukast [Singulair] 10 mg PO DAILY 06/12/18 [History] PARoxetine HCl [Paroxetine HCl] 20 mg PO DAILY 06/12/18 [History] Trazodone HCl 150 mg PO HS 06/12/18 [History] risperiDONE [Risperidone] 4 mg PO HS 06/12/18 [History] Amoxicillin/Clavulanate [Augmentin] 500 mg PO BIDWM 5 Days #10 tablet 06/14/18 [Rx] predniSONE [Prednisone] See Taper PO DAILY #21 [email or web address] 06/14/18 [Rx] Allergies/Adverse Reactions: Allergy/AdvReac Type Severity Reaction Status Date / Time tramadol Allergy Hives Verified 06/14/18 11:05 celecoxib [From Celebrex] AdvReac Depression Verified 06/08/18 06:28 hydrocodone [From Vicodin] AdvReac Diarrhea Verified 06/08/18 06:28 ibuprofen AdvReac Gastrointestinal Verified 06/08/18 06:28 Upset naproxen [From Naprosyn] AdvReac Headache Verified 06/06/18 10:26 propoxyphene AdvReac Headache Verified 06/07/18 09:08 [From Darvocet-N] Date of admission: 06/13/18 01:12 Primary care physician: Bakari Love DO Discharging clinician: Aide [place] Anticipated date of discharge: 06/14/18 - Constitutional Vitals: Temp Pulse Resp BP Pulse Ox 98.7 F 74 17 153/80 96 06/14/18 11:29 06/14/18 11:29 06/14/18 11:29 06/14/18 11:29 06/14/18 11:29 General appearance: Present: A&O X 3, pleasant, no acute distress, answers ques tions appropriately Exam: no respiratory distress at this time; patient protecting airway - Patient Status Disposition: Home, Self-Care Condition: Good Overall status at discharge: patient is back to baseline - Discharge Instructions Follow Up With: Bakari Love DO [Primary Care Provider] - - Diet and Activity Activity: increase activity as tolerated Diet: advance to your usual diet ( )
== END 2018-06-14 16:26 | disposition home or self-care (01) | DRG 920 ==
LOC: ICNU 16:26 → EMEROOARM 16:26 → ICNU 20:57 → 2ANU 06-13 14:55
PROVIDERS: ADMIT Family Medicine; ATTEND Family Medicine

== ENCOUNTER 2019-11-01 23:04 | Observation (INO) ==
[2019-11-01] MEDS ORDERED: Aspirin 81 MG TAB.CHEW PO ONE (23:15)
[2019-11-01 23:53] LABS: Prothrombin Time 11.5 Seconds (9.4-12.1)
[2019-11-01 23:56] LABS: Activated Partial Thrombo Time 31.8 Seconds (26.0-36.0)
[2019-11-02 00:05] LABS: Basophils # 0.1 K/mcL (0.0-0.2); Basophils % 0.9 %; Eosinophils # 0.3 K/mcL (0.0-0.6); Eosinophils % 3.1 %; Hematocrit 40.6 % (35.3-44.9); Immature Granulocytes % 1.1 % (0-4); Lymphocytes # 2.1 K/mcL (0.6-4.6); Lymphocytes % 25.3 %; Mean Corpuscular HGB Conc 34.5 g/dL (31.6-35.5); Mean Corpuscular Hemoglobin 32.1 pg (28.0-33.3); Mean Corpuscular Volume 93.1 fL (83.0-100.0); Mean Platelet Volume 9.8 fL (9.4-12.4); Monocytes # 0.7 K/mcL (0.0-1.3); Monocytes % 8.4 %; Platelet Count 379 K/mcL (140-400); Red Blood Count 4.36 M/mcL (3.82-4.97); Segmented Neutrophils % 61.2 %; White Blood Count 8.1 K/mcL (4.3-11.1)
[2019-11-02 00:20] LABS: Alanine Aminotransferase 12 Units/L (7-52); Albumin 4.3 g/dL (3.5-5.7); Albumin/Globulin Ratio 1.1 (1.1-2.2); Alkaline Phosphatase 47 Units/L (34-104); Aspartate Amino Transferase 18 Units/L (13-39); BUN/Creatinine Ratio 13 (6-26); Bilirubin,Direct 0.1 mg/dL (0.0-0.2); Bilirubin,Indirect 0.4 mg/dL (0.0-1.0); Bilirubin,Total 0.5 mg/dL (0.3-1.0); Blood Urea Nitrogen 8 mg/dL (6-20); Calcium 10.1 mg/dL (8.6-10.3); Carbon Dioxide 19 mEq/L (23-29); Chloride 90 mEq/L (98-107); Glucose 102 mg/dL (70-105); Osmolality,Calculated 247 (280-300); Potassium 3.5 mEq/L (3.5-5.1); Sodium 119 mEq/L (136-145); Total Protein 8.3 g/dL (6.4-8.9); Troponin I < 0.03 ng/mL (< 0.04); eGFR For African Americans > 60 (> 60); eGFR For Non-African Americans > 60 (> 60)
[2019-11-02] MEDS ORDERED: 0.9 % Sodium Chloride 1,000 ML IVC ONE (00:32)
[2019-11-02 00:55] LABS: Ethanol 125 mg/dL (Less than 10); Magnesium 1.5 mg/dL (1.6-2.6)
[2019-11-02 02:00] LABS: Bilirubin,Urine Negative (Negative); Blood,Urine Small (Negative); Clarity,Urine Clear (Clear); Color,Urine Yellow (Yellow); Glucose,Urine (UA) Normal (Normal); Ketones,Urine Negative (Negative); Leukocyte Esterase,Urine Negative (Negative); Nitrite,Urine Negative (Negative); Protein,Urine Negative (Neg-Trace); Specific Gravity,Urine 1.008 (1.010-1.025); Urobilinogen,Urine Normal (Normal)
[2019-11-02 02:01] LABS: Bacteria,Urine None Seen per hpf (None-Few); Hyaline Casts,Urine None Seen per lpf (None-Few); Squamous Epithelial Cell,Urine Moderate per lpf (None-Few); WBC,Urine 0-3 per hpf (0-3)
[2019-11-02 02:10] LABS: Amphetamine Screen,Urine Negative ng/mL (Cutoff=1000); Barbiturate Screen,Urine Negative ng/mL (Cutoff=200); Benzodiazepines Screen,Urine Negative ng/mL (Cutoff=200); Cannabinoid Screen,Urine Negative ng/mL (Cutoff = 50); Cocaine Screen,Urine Negative ng/mL (Cutoff= 300); Creatinine,Urine 19 mg/dL; Opiate Screen,Urine Negative ng/mL (Cutoff=300); Phencyclidine Screen,Urine Negative ng/mL (Cutoff=25); Sodium, Urine 16.4 mEq/L
[2019-11-02 03:07] LABS: BUN/Creatinine Ratio 12 (6-26); Blood Urea Nitrogen 7 mg/dL (6-20); Calcium 9.3 mg/dL (8.6-10.3); Carbon Dioxide 20 mEq/L (23-29); Chloride 94 mEq/L (98-107); Glucose 109 mg/dL (70-105); Osmolality,Calculated 249 (280-300); Potassium 3.6 mEq/L (3.5-5.1); Sodium 120 mEq/L (136-145); eGFR For African Americans > 60 (> 60); eGFR For Non-African Americans > 60 (> 60)
[2019-11-02] MEDS ORDERED: Ondansetron 4 MG/2 ML VIAL IVP PRN (03:18)
[2019-11-02] MEDS ORDERED: Naloxone 0.4 MG/ML INJ IVP PRN (03:18)
[2019-11-02] MEDS ORDERED: *HR* LORazepam 2 MG/ML VIAL IVP PRN ×3 (03:21)
[2019-11-02] MEDS ORDERED: 0.9 % Sodium Chloride 1,000 ML IVC SCH (03:30)
[2019-11-02] MEDS ORDERED: *HR* Heparin 5,000 UNIT/ML VIAL SQ SCH (06:00)
[2019-11-02 06:55] LABS: BUN/Creatinine Ratio 10 (6-26); Blood Urea Nitrogen 6 mg/dL (6-20); Calcium 9.7 mg/dL (8.6-10.3); Carbon Dioxide 24 mEq/L (23-29); Chloride 95 mEq/L (98-107); Glucose 130 mg/dL (70-105); Osmolality,Calculated 259 (280-300); Potassium 3.5 mEq/L (3.5-5.1); Sodium 125 mEq/L (136-145); eGFR For African Americans > 60 (> 60); eGFR For Non-African Americans > 60 (> 60)
[2019-11-02 06:56] LABS: Magnesium 1.4 mg/dL (1.6-2.6); Phosphorous 3.6 mg/dL (2.7-4.5)
[2019-11-02] MEDS ORDERED: Potassium Chloride Elixir 20 MEQ/15 ML UDC PO ONE (07:54)
[2019-11-02] MEDS ORDERED: Fluticasone Propionate Nasal 50 MCG/SPRAY BOTTLE NS SCH (09:00)
[2019-11-02] MEDS ORDERED: Vitamin B Complex/Vit C/Vit E 1 EACH TABLET PO SCH (09:00)
[2019-11-02] MEDS ORDERED: Thiamine (B-1) 100 MG TABLET PO SCH (09:00)
[2019-11-02] MEDS ORDERED: Folic Acid 1 MG TABLET PO SCH (09:00)
[2019-11-02] MEDS ORDERED: Gabapentin 400 MG CAPSULE PO SCH (09:00)
[2019-11-02] MEDS ORDERED: risperiDONE 1 MG TABLET PO SCH (09:00)
[2019-11-02] MEDS ORDERED: lisinopriL 20 MG TABLET PO SCH (09:00)
[2019-11-02 10:09] VITALS: BP 132/73
[2019-11-02] MEDS ORDERED: traZODone 50 MG TABLET PO SCH (21:00)
== END 2019-11-02 12:01 | disposition home or self-care (01) ==
LOC: EMEROOARM 23:04 → 2ANU 23:04 → SUATTDRO 11-02 03:21 → 2ANU 11-02 03:45
PROVIDERS: ADMIT Internal Medicine; ATTEND Student in an Organized Health Care Education/Training Program

== ENCOUNTER 2020-03-05 17:59 | Inpatient (IN) ==
[2020-03-05] MEDS ORDERED: methylPREDNISolone 125 MG/2 ML VIAL IVP ONE (18:12)
[2020-03-05 18:29] LABS: Basophils # 0.1 K/mcL (0.0-0.2); Basophils % 0.7 %; Eosinophils # 0.3 K/mcL (0.0-0.6); Eosinophils % 2.1 %; Hematocrit 39.2 % (35.3-44.9); Hemoglobin 12.7 g/dL (11.5-15.4); Immature Granulocytes % 0.7 % (0-4); Lymphocytes # 3.3 K/mcL (0.6-4.6); Lymphocytes % 24.8 %; Mean Corpuscular HGB Conc 32.4 g/dL (31.6-35.5); Mean Corpuscular Hemoglobin 31.7 pg (28.0-33.3); Mean Corpuscular Volume 97.8 fL (83.0-100.0); Mean Platelet Volume 9.1 fL (9.4-12.4); Monocytes # 0.9 K/mcL (0.0-1.3); Monocytes % 6.8 %; Neutrophils # 8.5 K/mcL (1.6-8.9); Platelet Count 489 K/mcL (140-400); Red Blood Count 4.01 M/mcL (3.82-4.97); Red Cell Distribution Width 14.4 % (11.5-14.5); Segmented Neutrophils % 64.9 %; White Blood Count 13.2 K/mcL (4.3-11.1)
[2020-03-05] MEDS ORDERED: Ipratropium/Albuterol Neb 3 ML ONE (18:29)
[2020-03-05 18:37] LABS: Prothrombin Time 11.6 Seconds (9.4-12.1)
[2020-03-05] MEDS: Ipratropium/Albuterol Neb 3 ML IH ONE ×2 (18:37→18:38)
[2020-03-05 18:40] LABS: Activated Partial Thrombo Time 31.4 Seconds (26.0-36.0)
[2020-03-05] MEDS ORDERED: cefTRIAXone 1,000 MG in Water for inj. (sterile) 10 ML IVP ONE (18:40)
[2020-03-05] MEDS ORDERED: Azithromycin 500 MG in 0.9 % Sodium Chloride 250 ML IVPB ONE (18:40)
[2020-03-05 18:51] LABS: Alanine Aminotransferase 13 Units/L (7-52); Albumin 4.2 g/dL (3.5-5.7); Albumin/Globulin Ratio 1.1 (1.1-2.2); Alkaline Phosphatase 42 Units/L (34-104); Aspartate Amino Transferase 29 Units/L (13-39); BUN/Creatinine Ratio 10 (6-26); Bilirubin,Direct 0.1 mg/dL (0.0-0.2); Bilirubin,Indirect 0.4 mg/dL (0.0-1.0); Bilirubin,Total 0.5 mg/dL (0.3-1.0); Blood Urea Nitrogen 6 mg/dL (8-23); C-Reactive Protein 11 mg/L (Less than 10); Calcium 9.5 mg/dL (8.6-10.3); Carbon Dioxide 19 mEq/L (23-29); Chloride 98 mEq/L (98-107); Globulin 3.9 g/dL (2.4-3.5); Glucose 152 mg/dL (70-105); Lactate Dehydrogenase 191 Units/L (140-271); Magnesium 1.6 mg/dL (1.6-2.6); Osmolality,Calculated 269 (280-300); Phosphorous 4.8 mg/dL (2.7-4.5); Potassium 3.7 mEq/L (3.5-5.1); Sodium 129 mEq/L (136-145); Total Protein 8.1 g/dL (6.4-8.9); eGFR For African Americans > 60 (> 60); eGFR For Non-African Americans > 60 (> 60)
[2020-03-05 19:01] LABS: Troponin I 0.74 ng/mL (< 0.04)
[2020-03-05 19:09] LABS: Ferritin 276 ng/mL (10-120)
[2020-03-05 19:20] LABS: Adenovirus Not Detected (Not Detect); Bordetella Pertussis Not Detected (Not Detect); Chlamydophila pneumoniae Not Detected (Not Detect); Coronavirus 229E Not Detected (Not Detect); Coronavirus HKU1 Not Detected (Not Detect); Coronavirus NL63 Not Detected (Not Detect); Coronavirus OC43 Not Detected (Not Detect); Human Metapneumovirus Not Detected (Not Detect); Human Rhinovirus/Enterovirus Not Detected (Not Detect); Influenza A Subtype 2009 H1 Not Detected (Not Detect); Influenza B Not Detected (Not Detect); Mycoplasma pneumoniae Not Detected (Not Detect); Parainfluenza Virus 1 Not Detected (Not Detect); Parainfluenza Virus 2 Not Detected (Not Detect); Parainfluenza Virus 3 Not Detected (Not Detect); Parainfluenza Virus 4 Not Detected (Not Detect); Respiratory Syncytial Virus Not Detected (Not Detect)
[2020-03-05] MEDS ORDERED: Isovue-370 500 ML BOTTLE IVP ONE (19:29)
[2020-03-05] MEDS ORDERED: *HR* Heparin 5,000 UNIT/ML VIAL IVP ONE (20:58)
[2020-03-05] MEDS ORDERED: *HR* Heparin 5,000 UNIT/ML VIAL IVP PRN ×2 (20:58)
[2020-03-05] MEDS ORDERED: Heparin 25,000 UNIT/250 ML D5W 25,000 UNIT/250 ML IV.SOLN IVC SCH (21:00)
[2020-03-05] MEDS ORDERED: Acetaminophen 325 MG TABLET PO PRN (22:03)
[2020-03-05] MEDS ORDERED: *HR* Promethazine 25 MG/ML VIAL IVP PRN (22:03)
[2020-03-05] MEDS ORDERED: Naloxone 0.4 MG/ML INJ IVP PRN (22:03)
[2020-03-05] MEDS ORDERED: Perflutren Lipid Microsphere 1.3 ML in 0.9 % Sodium Chloride 8.7 ML IVP PRN (22:05)
[2020-03-06] MEDS ORDERED: Ipratropium/Albuterol Neb 3 ML IH PRN
[2020-03-06] MEDS ORDERED: MethylPREDNISolone 40 MG/ML VIAL IVP SCH
[2020-03-06] MEDS ORDERED: diazePAM 5 MG TABLET PO PRN (00:04)
[2020-03-06] MEDS ORDERED: Dextrose Gel 15 GM/37.5 ML TUBE PO PRN ×2 (00:05)
[2020-03-06] MEDS ORDERED: D5% in Water 1,000 ML IVC PRN (00:05)
[2020-03-06] MEDS ORDERED: *HR* Dextrose 50 % in Water (Vial) 50 ML VIAL IVP PRN (00:05)
[2020-03-06] MEDS: Insulin LISPRO 300 UNITS/3 ML VIAL SQ SCH ×3 (00:16→12:52)
[2020-03-06] MEDS ORDERED: traZODone 50 MG TABLET PO SCH ×2 (00:30→21:00)
[2020-03-06 01:26] LABS: Estimated Average Glucose 126 mg/dl
[2020-03-06 05:13] LABS: Basophils % 0.1 %; Hematocrit 36.1 % (35.3-44.9); Hemoglobin 11.6 g/dL (11.5-15.4); Immature Granulocytes % 0.6 % (0-4); Lymphocytes # 0.6 K/mcL (0.6-4.6); Lymphocytes % 6.9 %; Mean Corpuscular HGB Conc 32.1 g/dL (31.6-35.5); Mean Corpuscular Volume 96.5 fL (83.0-100.0); Mean Platelet Volume 9.5 fL (9.4-12.4); Monocytes # 0.1 K/mcL (0.0-1.3); Monocytes % 0.9 %; Neutrophils # 7.3 K/mcL (1.6-8.9); Platelet Count 413 K/mcL (140-400); Red Blood Count 3.74 M/mcL (3.82-4.97); Red Cell Distribution Width 14.2 % (11.5-14.5); Segmented Neutrophils % 91.5 %
[2020-03-06 05:22] LABS: Prothrombin Time 11.7 Seconds (9.4-12.1)
[2020-03-06 05:38] LABS: BUN/Creatinine Ratio 14 (6-26); Blood Urea Nitrogen 7 mg/dL (8-23); Calcium 9.4 mg/dL (8.6-10.3); Carbon Dioxide 23 mEq/L (23-29); Chloride 102 mEq/L (98-107); Chol/HDL Ratio 5.4 (0-4.9); Cholesterol 179 mg/dL (< 200); Glucose 177 mg/dL (70-105); HDL Cholesterol 33 mg/dL (40-59); LDL Cholesterol,Calculated 110 mg/dL (< 100); Magnesium 1.8 mg/dL (1.6-2.6); Osmolality,Calculated 276 (280-300); Phosphorous 3.9 mg/dL (2.7-4.5); Potassium 4.4 mEq/L (3.5-5.1); Sodium 132 mEq/L (136-145); Triglycerides 181 mg/dL (< 150); eGFR For African Americans > 60 (> 60); eGFR For Non-African Americans > 60 (> 60)
[2020-03-06 05:50] LABS: Thyroid Stimulating Hormone 0.768 mcIU/mL (0.340-5.600)
[2020-03-06] MEDS ORDERED: predniSONE 20 MG TABLET PO SCH (09:00)
[2020-03-06] MEDS ORDERED: cefTRIAXone 1,000 MG in Water for inj. (sterile) 10 ML IVP SCH (09:00)
[2020-03-06] MEDS ORDERED: Gabapentin 400 MG CAPSULE PO SCH (09:00)
[2020-03-06] MEDS ORDERED: Thiamine (B-1) 100 MG TABLET PO SCH (09:00)
[2020-03-06] MEDS ORDERED: Fluticasone Propionate Nasal 50 MCG/SPRAY BOTTLE NS SCH (09:00)
[2020-03-06] MEDS ORDERED: risperiDONE 0.25 MG TABLET PO SCH (09:00)
[2020-03-06] MEDS ORDERED: Budesonide/Formoterol 80/4.5 1 PUFF INH IH SCH (10:00)
[2020-03-06 11:27] VITALS: BP 150/84
[2020-03-06] MEDS ORDERED: carvediloL 6.25 MG TABLET PO SCH (17:00)
[2020-03-06] MEDS ORDERED: Azithromycin 500 MG in 0.9 % Sodium Chloride 250 ML IVPB SCH (18:00)
[2020-03-06] MEDS ORDERED: amLODIPine 5 MG TABLET PO SCH (21:00)
[2020-03-07] MEDS ORDERED: RISPERIDONE 4 MG PO SCH (09:00)
[2020-03-07] MEDS ORDERED: Furosemide 40 MG TABLET PO SCH (09:00)
[2020-03-07] MEDS ORDERED: Aspirin Enteric Coated 81 MG Tablet PO SCH (09:00)
[2020-03-07] MEDS ORDERED: risperiDONE 1 MG, risperiDONE 3 MG PO SCH (09:00)
== END 2020-03-06 16:05 | disposition left against medical advice (07) | DRG 193 ==
LOC: 2NNU 17:59 → EMEROOARM 17:59 → SUATTDRO 21:45 → 2NNU 22:38
PROVIDERS: ADMIT Internal Medicine; ATTEND Pharmacist

== ENCOUNTER 2020-05-13 11:30 | Inpatient (IN) ==
[2020-05-13] MEDS ORDERED: predniSONE 20 MG TABLET PO ONE (11:34)
[2020-05-13] MEDS ORDERED: Ipratropium/Albuterol Neb 3 ML IH ONE (11:34)
[2020-05-13] MEDS ORDERED: methylPREDNISolone 125 MG/2 ML VIAL IVP ONE (11:35)
[2020-05-13 11:55] LABS: Basophils % 0.1 %; Eosinophils % 0.1 %; Hematocrit 39.1 % (35.3-44.9); Immature Granulocytes % 0.6 % (0-4); Lymphocytes # 0.9 K/mcL (0.6-4.6); Lymphocytes % 9.1 %; Mean Corpuscular HGB Conc 33.2 g/dL (31.6-35.5); Mean Corpuscular Hemoglobin 31.1 pg (28.0-33.3); Mean Corpuscular Volume 93.5 fL (83.0-100.0); Mean Platelet Volume 10.6 fL (9.4-12.4); Monocytes # 0.8 K/mcL (0.0-1.3); Monocytes % 8.6 %; Neutrophils # 7.7 K/mcL (1.6-8.9); Platelet Count 306 K/mcL (140-400); Red Blood Count 4.18 M/mcL (3.82-4.97); Red Cell Distribution Width 12.3 % (11.5-14.5); Segmented Neutrophils % 81.5 %; White Blood Count 9.4 K/mcL (4.3-11.1)
[2020-05-13 12:00] LABS: Prothrombin Time 11.7 Seconds (9.4-12.1)
[2020-05-13 12:01] LABS: ABG Base Excess -5 mEq/L (-2 to 3); ABG HCO3 22 mEq/L (21-27); ABG Oxygen Saturation 91 % (95-98); ABG PCO2 49 mmHg (35-45); ABG PH 7.27 pH Units (7.32-7.45); ABG PO2 69 mmHg (85-104); ABG TCO2 24 mEq/L (20-26)
[2020-05-13] MEDS ORDERED: Furosemide 40 MG/4 ML VIAL IVP ONE (12:19)
[2020-05-13 12:21] LABS: Alanine Aminotransferase 17 Units/L (7-52); Albumin 4.1 g/dL (3.5-5.7); Albumin/Globulin Ratio 1.2 (1.1-2.2); Alkaline Phosphatase 40 Units/L (34-104); Aspartate Amino Transferase 21 Units/L (13-39); BUN/Creatinine Ratio 18 (6-26); Bilirubin,Direct 0.2 mg/dL (0.0-0.2); Bilirubin,Indirect 0.3 mg/dL (0.0-1.0); Bilirubin,Total 0.5 mg/dL (0.3-1.0); Blood Urea Nitrogen 19 mg/dL (8-23); Calcium 9.7 mg/dL (8.6-10.3); Carbon Dioxide 20 mEq/L (23-29); Chloride 82 mEq/L (98-107); Ethanol < 10 mg/dL (Less than 10); Globulin 3.5 g/dL (2.4-3.5); Glucose 126 mg/dL (70-105); Osmolality,Calculated 238 (280-300); Potassium 5.5 mEq/L (3.5-5.1); Sodium 112 mEq/L (136-145); Total Protein 7.6 g/dL (6.4-8.9); Troponin I < 0.03 ng/mL (< 0.04); eGFR For African Americans > 60 (> 60); eGFR For Non-African Americans 52 (> 60)
[2020-05-13 13:12] LABS: Adenovirus Not Detected (Not Detect); Bordetella Pertussis Not Detected (Not Detect); Chlamydophila pneumoniae Not Detected (Not Detect); Coronavirus 229E Not Detected (Not Detect); Coronavirus HKU1 Not Detected (Not Detect); Coronavirus NL63 Not Detected (Not Detect); Coronavirus OC43 Not Detected (Not Detect); Human Metapneumovirus Not Detected (Not Detect); Human Rhinovirus/Enterovirus Not Detected (Not Detect); Influenza A Subtype 2009 H1 Not Detected (Not Detect); Influenza B Not Detected (Not Detect); Mycoplasma pneumoniae Not Detected (Not Detect); Parainfluenza Virus 1 Not Detected (Not Detect); Parainfluenza Virus 2 Not Detected (Not Detect); Parainfluenza Virus 3 Not Detected (Not Detect); Parainfluenza Virus 4 Not Detected (Not Detect); Respiratory Syncytial Virus Not Detected (Not Detect); SARS-CoV-2 Not Detected (Not Detect)
[2020-05-13] MEDS ORDERED: Naloxone 0.4 MG/ML INJ IVP PRN (14:21)
[2020-05-13] MEDS ORDERED: Albuterol 2.5 MG/3 ML NEBULIZER IH PRN (14:37)
[2020-05-13] MEDS ORDERED: Piperacillin/Tazobactam 3.375 GM in 0.9 % Sodium Chloride Mini Bag 100 ML IVP SCH (15:00)
[2020-05-13] MEDS ORDERED: diazePAM 5 MG TABLET PO PRN (15:50)
[2020-05-13] MEDS ORDERED: *HR* Heparin 5,000 UNIT/ML VIAL SQ SCH (16:00)
[2020-05-13] MEDS ORDERED: *HR* Heparin 5,000 UNIT/ML VIAL IVP ONE (16:34)
[2020-05-13] MEDS ORDERED: *HR* Heparin 5,000 UNIT/ML VIAL IVP PRN ×2 (16:34)
[2020-05-13] MEDS: Heparin 25,000UNIT/250ML 1/2NS 25,000 UNIT/250 ML IV.SOLN IVC SCH (17:55)
[2020-05-13] MEDS: Aspirin 81 MG TAB.CHEW PO SCH (17:57)
[2020-05-13] MEDS ORDERED: *HR* LORazepam 2 MG/ML VIAL IVP PRN ×2 (18:05)
[2020-05-13] MEDS ORDERED: *HR* Promethazine 25 MG/ML VIAL IVP PRN (18:05)
[2020-05-13] MEDS: Ipratropium/Albuterol Neb 3 ML IH SCH ×3 (18:38→23:21)
[2020-05-13 18:40] LABS: Heparin anti-factor XA UFH 0.46 IU/mL (0.30-0.70)
[2020-05-13 18:41] LABS: INR 1.1
[2020-05-13 18:54] LABS: Hematocrit 38.2 % (35.3-44.9); Hemoglobin 12.5 g/dL (11.5-15.4); Mean Corpuscular HGB Conc 32.7 g/dL (31.6-35.5); Mean Corpuscular Hemoglobin 30.5 pg (28.0-33.3); Mean Corpuscular Volume 93.2 fL (83.0-100.0); Mean Platelet Volume 11.2 fL (9.4-12.4); Platelet Count 291 K/mcL (140-400); Red Cell Distribution Width 12.4 % (11.5-14.5); White Blood Count 8.8 K/mcL (4.3-11.1)
[2020-05-13 18:56] LABS: Calcium 9.6 mg/dL (8.6-10.3); Magnesium 1.7 mg/dL (1.6-2.6); Potassium 6.4 mEq/L (3.5-5.1)
[2020-05-13] MEDS: Thiamine (B-1) 100 MG, Folic Acid 1 MG, MVI, adult with vitamin K 10 ML in 0.9 % Sodi... IVPB SCH (19:14)
[2020-05-13] MEDS: Budesonide/Formoterol 160/4.5 1 PUFF INH IH SCH (19:38)
[2020-05-13] MEDS: Furosemide 40 MG/4 ML VIAL IVP SCH (20:53)
[2020-05-13] MEDS: traZODone 50 MG TABLET PO SCH (20:54)
[2020-05-13] MEDS: Acetaminophen 325 MG TABLET PO PRN (20:54)
[2020-05-14 01:44] LABS: BUN/Creatinine Ratio 23 (6-26); Blood Urea Nitrogen 25 mg/dL (8-23); Carbon Dioxide 21 mEq/L (23-29); Chloride 86 mEq/L (98-107); Glucose 141 mg/dL (70-105); Magnesium 1.7 mg/dL (1.6-2.6); Osmolality,Calculated 247 (280-300); Phosphorous 4.4 mg/dL (2.7-4.5); Potassium 5.9 mEq/L (3.5-5.1); Sodium 115 mEq/L (136-145); eGFR For African Americans > 60 (> 60); eGFR For Non-African Americans 51 (> 60)
[2020-05-14] MEDS ORDERED: Tolvaptan 15 MG TABLET PO ONE (01:49)
[2020-05-14 01:50] LABS: Chloride,Urine 23 mEq/L; Creatinine,Urine 98 mg/dL; Potassium,Urine 56.3 mEq/L; Sodium, Urine < 10.0 mEq/L
[2020-05-14] MEDS: Piperacillin/Tazobactam 3.375 GM in 0.9 % Sodium Chloride Mini Bag 100 ML IVP SCH ×3 (02:03→17:48)
[2020-05-14] MEDS: Ipratropium/Albuterol Neb 3 ML IH SCH ×5 (03:29→20:27)
[2020-05-14 06:29] LABS: Basophils % 0.1 %; Hematocrit 35.7 % (35.3-44.9); Hemoglobin 11.7 g/dL (11.5-15.4); Lymphocytes # 0.5 K/mcL (0.6-4.6); Lymphocytes % 6.5 %; Mean Corpuscular HGB Conc 32.8 g/dL (31.6-35.5); Mean Corpuscular Hemoglobin 30.2 pg (28.0-33.3); Mean Corpuscular Volume 92.2 fL (83.0-100.0); Monocytes # 0.7 K/mcL (0.0-1.3); Monocytes % 9.1 %; Neutrophils # 6.8 K/mcL (1.6-8.9); Platelet Count 300 K/mcL (140-400); Red Blood Count 3.87 M/mcL (3.82-4.97); Red Cell Distribution Width 12.6 % (11.5-14.5); Segmented Neutrophils % 83.3 %; White Blood Count 8.1 K/mcL (4.3-11.1)
[2020-05-14 06:46] LABS: BUN/Creatinine Ratio 25 (6-26); Blood Urea Nitrogen 24 mg/dL (8-23); Calcium 9.4 mg/dL (8.6-10.3); Carbon Dioxide 23 mEq/L (23-29); Chloride 89 mEq/L (98-107); Glucose 127 mg/dL (70-105); Magnesium 1.8 mg/dL (1.6-2.6); Osmolality,Calculated 260 (280-300); Phosphorous 4.3 mg/dL (2.7-4.5); Potassium 4.6 mEq/L (3.5-5.1); Sodium 122 mEq/L (136-145); eGFR For African Americans > 60 (> 60); eGFR For Non-African Americans 59 (> 60)
[2020-05-14 06:47] LABS: Albumin 3.9 g/dL (3.5-5.7); Albumin/Globulin Ratio 1.1 (1.1-2.2); Bilirubin,Direct 0.2 mg/dL (0.0-0.2); Bilirubin,Indirect 0.3 mg/dL (0.0-1.0); Bilirubin,Total 0.5 mg/dL (0.3-1.0); Globulin 3.4 g/dL (2.4-3.5); Total Protein 7.3 g/dL (6.4-8.9)
[2020-05-14] MEDS: Budesonide/Formoterol 160/4.5 1 PUFF INH IH SCH ×2 (07:29→20:27)
[2020-05-14 07:41] LABS: BUN/Creatinine Ratio 27 (6-26); Blood Urea Nitrogen 23 mg/dL (8-23); Calcium 9.4 mg/dL (8.6-10.3); Carbon Dioxide 23 mEq/L (23-29); Chloride 90 mEq/L (98-107); Glucose 123 mg/dL (70-105); Magnesium 1.8 mg/dL (1.6-2.6); Osmolality,Calculated 263 (280-300); Potassium 4.5 mEq/L (3.5-5.1); Sodium 124 mEq/L (136-145); eGFR For African Americans > 60 (> 60); eGFR For Non-African Americans > 60 (> 60)
[2020-05-14] MEDS: MethylPREDNISolone 40 MG/ML VIAL IVP SCH (07:58)
[2020-05-14] MEDS: Furosemide 40 MG/4 ML VIAL IVP SCH (07:58)
[2020-05-14] MEDS: risperiDONE 1 MG TABLET PO SCH (07:59)
[2020-05-14] MEDS: Aspirin 81 MG TAB.CHEW PO SCH (07:59)
[2020-05-14] MEDS: Fenofibrate 54 MG TABLET PO SCH (07:59)
[2020-05-14] MEDS ORDERED: Thiamine (B-1) 100 MG TABLET PO SCH (09:00)
[2020-05-14] MEDS ORDERED: Folic Acid 1 MG TABLET PO SCH (09:00)
[2020-05-14] MEDS: Fluticasone Propionate Nasal 50 MCG/SPRAY BOTTLE NS SCH (09:48)
[2020-05-14 10:18] LABS: Bilirubin,Urine Negative (Negative); Blood,Urine Negative (Negative); Clarity,Urine Clear (Clear); Color,Urine Colorless (Yellow); Glucose,Urine (UA) Normal (Normal); Ketones,Urine Negative (Negative); Leukocyte Esterase,Urine Negative (Negative); Nitrite,Urine Negative (Negative); Protein,Urine Negative (Neg-Trace); Specific Gravity,Urine 1.005 (1.010-1.025); Urobilinogen,Urine Normal (Normal)
[2020-05-14 10:24] LABS: Amphetamine Screen,Urine Negative ng/mL (Cutoff=1000); Barbiturate Screen,Urine Negative ng/mL (Cutoff=200); Benzodiazepines Screen,Urine Positive ng/mL (Cutoff=200); Cannabinoid Screen,Urine Negative ng/mL (Cutoff = 50); Cocaine Screen,Urine Negative ng/mL (Cutoff= 300); Opiate Screen,Urine Negative ng/mL (Cutoff=300); Phencyclidine Screen,Urine Negative ng/mL (Cutoff=25)
[2020-05-14 10:35] LABS: Creatinine,Urine 10 mg/dL
[2020-05-14 11:06] LABS: VBG Ionized Calcium 1.16 mmol/L (1.15-1.35)
[2020-05-14] MEDS: Nicotine 7 MG PATCH.TD24 TD SCH (11:14)
[2020-05-14] MEDS: Metoprolol XL (24 HR) Succ 25 MG TAB.ER.24H PO SCH (11:14)
[2020-05-14 12:09] LABS: BUN/Creatinine Ratio 26 (6-26); Blood Urea Nitrogen 21 mg/dL (8-23); Carbon Dioxide 23 mEq/L (23-29); Chloride 90 mEq/L (98-107); Creatine Kinase 93 Units/L (30-223); Glucose 129 mg/dL (70-105); Magnesium 1.7 mg/dL (1.6-2.6); Osmolality,Calculated 271 (280-300); Phosphorous 3.5 mg/dL (2.7-4.5); Potassium 3.9 mEq/L (3.5-5.1); Sodium 128 mEq/L (136-145); Thyroid Stimulating Hormone 1.048 mcIU/mL (0.340-5.600); Uric Acid 6.8 mg/dL (2.3-7.6); eGFR For African Americans > 60 (> 60); eGFR For Non-African Americans > 60 (> 60)
[2020-05-14] MEDS: D5% in Water 1,000 ML IVC SCH (14:17)
[2020-05-14] MEDS: Heparin 25,000UNIT/250ML 1/2NS 25,000 UNIT/250 ML IV.SOLN IVC SCH (15:12)
[2020-05-14 16:17] LABS: BUN/Creatinine Ratio 25 (6-26); Blood Urea Nitrogen 18 mg/dL (8-23); Calcium 9.7 mg/dL (8.6-10.3); Carbon Dioxide 29 mEq/L (23-29); Chloride 94 mEq/L (98-107); Glucose 179 mg/dL (70-105); Magnesium 2.2 mg/dL (1.6-2.6); Osmolality,Calculated 278 (280-300); Phosphorous 2.7 mg/dL (2.7-4.5); Potassium 4.1 mEq/L (3.5-5.1); Sodium 131 mEq/L (136-145); eGFR For African Americans > 60 (> 60); eGFR For Non-African Americans > 60 (> 60)
[2020-05-14] MEDS: Thiamine (B-1) 100 MG, Folic Acid 1 MG, MVI, adult with vitamin K 10 ML in 0.9 % Sodi... IVPB SCH (17:47)
[2020-05-14 18:29] LABS: BUN/Creatinine Ratio 25 (6-26); Blood Urea Nitrogen 17 mg/dL (8-23); Calcium 9.9 mg/dL (8.6-10.3); Carbon Dioxide 30 mEq/L (23-29); Chloride 95 mEq/L (98-107); Glucose 167 mg/dL (70-105); Osmolality,Calculated 279 (280-300); Sodium 132 mEq/L (136-145); eGFR For African Americans > 60 (> 60); eGFR For Non-African Americans > 60 (> 60)
[2020-05-14] MEDS: traZODone 50 MG TABLET PO SCH (20:48)
[2020-05-14 22:18] LABS: BUN/Creatinine Ratio 27 (6-26); Blood Urea Nitrogen 17 mg/dL (8-23); Calcium 9.5 mg/dL (8.6-10.3); Carbon Dioxide 31 mEq/L (23-29); Chloride 98 mEq/L (98-107); Glucose 136 mg/dL (70-105); Osmolality,Calculated 282 (280-300); Sodium 134 mEq/L (136-145); eGFR For African Americans > 60 (> 60); eGFR For Non-African Americans > 60 (> 60)
[2020-05-14 22:19] LABS: Magnesium 2.1 mg/dL (1.6-2.6); Phosphorous 1.8 mg/dL (2.7-4.5)
[2020-05-15] MEDS: D5% in Water 1,000 ML IVC SCH (00:27)
[2020-05-15] MEDS: Ipratropium/Albuterol Neb 3 ML IH SCH ×5 (00:44→15:13)
[2020-05-15] MEDS: Piperacillin/Tazobactam 3.375 GM in 0.9 % Sodium Chloride Mini Bag 100 ML IVP SCH ×2 (01:30→10:29)
[2020-05-15] MEDS: Acetaminophen 325 MG TABLET PO PRN ×2 (05:10→14:38)
[2020-05-15 06:10] LABS: Hematocrit 34.5 % (35.3-44.9); Hemoglobin 11.5 g/dL (11.5-15.4); Mean Corpuscular HGB Conc 33.3 g/dL (31.6-35.5); Mean Corpuscular Hemoglobin 31.3 pg (28.0-33.3); Mean Corpuscular Volume 93.8 fL (83.0-100.0); Mean Platelet Volume 10.4 fL (9.4-12.4); Platelet Count 334 K/mcL (140-400); Red Blood Count 3.68 M/mcL (3.82-4.97); Red Cell Distribution Width 12.9 % (11.5-14.5)
[2020-05-15 06:30] LABS: BUN/Creatinine Ratio 24 (6-26); Blood Urea Nitrogen 12 mg/dL (8-23); Calcium 9.8 mg/dL (8.6-10.3); Carbon Dioxide 30 mEq/L (23-29); Chloride 98 mEq/L (98-107); Glucose 133 mg/dL (70-105); Osmolality,Calculated 282 (280-300); Potassium 3.4 mEq/L (3.5-5.1); Sodium 135 mEq/L (136-145); eGFR For African Americans > 60 (> 60); eGFR For Non-African Americans > 60 (> 60)
[2020-05-15 06:31] LABS: Phosphorous 1.5 mg/dL (2.7-4.5)
[2020-05-15] MEDS ORDERED: Potassium Chloride Elixir 20 MEQ/15 ML UDC PO ONE (06:48)
[2020-05-15] MEDS: Budesonide/Formoterol 160/4.5 1 PUFF INH IH SCH (07:25)
[2020-05-15] MEDS: Aspirin 81 MG TAB.CHEW PO SCH (07:40)
[2020-05-15] MEDS: MethylPREDNISolone 40 MG/ML VIAL IVP SCH (07:40)
[2020-05-15] MEDS: Nicotine 7 MG PATCH.TD24 TD SCH (07:44)
[2020-05-15] MEDS: Metoprolol XL (24 HR) Succ 25 MG TAB.ER.24H PO SCH (07:45)
[2020-05-15] MEDS: risperiDONE 1 MG TABLET PO SCH (07:45)
[2020-05-15] MEDS: Fenofibrate 54 MG TABLET PO SCH (07:45)
[2020-05-15] MEDS: Fluticasone Propionate Nasal 50 MCG/SPRAY BOTTLE NS SCH (07:46)
[2020-05-15] MEDS ORDERED: Furosemide 40 MG/4 ML VIAL IVP SCH (09:00)
[2020-05-15] MEDS: Heparin 25,000UNIT/250ML 1/2NS 25,000 UNIT/250 ML IV.SOLN IVC SCH (10:50)
[2020-05-15 14:43] VITALS: BP 146/86
[2020-05-15 15:41] LABS: Magnesium 1.6 mg/dL (1.6-2.6); Phosphorous 2.1 mg/dL (2.7-4.5)
[2020-05-15 15:42] LABS: BUN/Creatinine Ratio 18 (6-26); Blood Urea Nitrogen 13 mg/dL (8-23); Calcium 9.7 mg/dL (8.6-10.3); Carbon Dioxide 29 mEq/L (23-29); Chloride 97 mEq/L (98-107); Glucose 172 mg/dL (70-105); Osmolality,Calculated 286 (280-300); Potassium 4.2 mEq/L (3.5-5.1); Sodium 136 mEq/L (136-145); eGFR For African Americans > 60 (> 60); eGFR For Non-African Americans > 60 (> 60)
== END 2020-05-15 16:06 | disposition short-term general hospital (02) | DRG 291 ==
LOC: EMEROOARM 11:30 → ICNU 16:22
PROVIDERS: ADMIT Pediatrics; ATTEND Pediatrics